=== PATIENT | female | born 1985 | race Caucasian/White ===

== ENCOUNTER → 2018-03-01 | Outpatient (CLI) | payer OTHER | LOC: HYPER 05:31 | DX: L89.324 Pressure ulcer of left buttock, stage 4 (principal); L89.893 Pressure ulcer of other site, stage 3; L89.121 Pressure ulcer of left upper back, stage 1; S71.132A Puncture wound without foreign body, left thigh, initial encounter; G82.20 Paraplegia, unspecified; G47.30 Sleep apnea, unspecified; I10 Essential (primary) hypertension; J45.909 Unspecified asthma, uncomplicated; K21.9 Gastro-esophageal reflux disease without esophagitis; F06.4 Anxiety disorder due to known physiological condition; F32.9 Major depressive disorder, single episode, unspecified; X58.XXXA Exposure to other specified factors, initial encounter; Y93.89 Activity, other specified; Y92.89 Other specified places as the place of occurrence of the external cause; Y99.8 Other external cause status ==

== ENCOUNTER 2018-03-19 16:33 | Inpatient (IN) | payer OTHER ==
[~2018-03-19] VITALS: Ht 175.3 cm; Wt 62.3 kg
[2018-03-19] MEDS ORDERED: LITHOSTAT250 MG PO (17:25)
[2018-03-19] MEDS ORDERED: AZOR 10-20 MG1 EACH PO (17:26)
[2018-03-19] MEDS ORDERED: ZYRTEC10 M2 PO (17:26)
[2018-03-19] MEDS ORDERED: VASOTEC5 MG PO (17:27)
[2018-03-19] MEDS ORDERED: AMLODIPINE BESY10 MG PO (17:28)
[2018-03-19] MEDS ORDERED: IRON325 PO (17:29)
[2018-03-19] MEDS ORDERED: MELATONIN5 M1 PO (17:30)
[2018-03-19] MEDS ORDERED: SENNA8.6 MG PO (17:30)
[2018-03-19 17:31] VITALS: BP 93/56
[2018-03-19] MEDS ORDERED: PRENATAL PO (17:31)
[2018-03-19] MEDS ORDERED: ZOLOFT50 MG PO (17:32)
[2018-03-19] MEDS ORDERED: LIORESAL 10 MG10 MG PO (17:33)
[2018-03-19] MEDS ORDERED: KLOR-CON 1010 MEQ PO (17:33)
[2018-03-19] MEDS ORDERED: VESICARE10 M1 PO (17:34)
[2018-03-19] MEDS ORDERED: OXYBUTYNIN 5 MG5 M2 PO (17:35)
[2018-03-19] MEDS ORDERED: SSD CREAM 1% 5050 GM TOP (17:36)
[2018-03-19] MEDS ORDERED: DESITIN57 GM TOP (17:38)
[2018-03-19] MEDS ORDERED: DAKIN'S473 M1 IRRIG (17:39)
[2018-03-19 18:00] LABS: BE(vivo) 2.6 mmol/L (-2 to +3); HCO3 26.8 mmol/L (22.0-26.0); PCO2 39.3 mmHg (35.0-45.0); PO2 137.3 mmHg (80.0-100.0); pH 7.452 (7.360-7.450); sO2 98.9 % (92.0-98.0)
[2018-03-19] MEDS ORDERED: BROVANA15 MCG/2 M INH (18:14)
[2018-03-19] MEDS ORDERED: PULMICORT0.5 MG/22 INH (18:15)
[2018-03-19] MEDS ORDERED: ALBUTEROL2.5 MG/31 INH (18:16)
[2018-03-19 18:35] LABS: ABSOLUTE NEUTROPHILS 6.4 thou/uL (1.4-8.2); BASOPHILS 0.4 % (0.0-2.0); EOSINOPHILS 0.9 % (0.0-3.0); LYMPHOCYTES 16.8 % (24.0-44.0); MCH 29.7 pg (26.0-34.0); MCHC 33.1 g/dL (28.0-37.0); MCV 89.8 fL (80.0-100.0); MONOCYTES 7.3 % (1.0-8.0); PLATELET COUNT 587 thou/uL (150-400); POLYS 74.6 % (36.0-66.0); RDW 16.4 % (10.5-14.5); WBC 8.6 thou/uL (4.0-11.0)
[2018-03-19 18:38] LABS: HEMOGLOBIN 5.9 gm/dL (12.0-15.0)
[2018-03-19 18:47] LABS: PROTIME 10.7 Seconds (9.3-11.4)
[2018-03-19 18:56] LABS: ALBUMIN 2.5 g/dL (3.4-5.0); CALCIUM 9.1 mg/dL (8.5-10.1); CREATININE 1.1 mg/dL (0.6-1.0); MAGNESIUM 2.4 mg/dL (1.8-2.4); POTASSIUM 5.7 mmol/L (3.5-5.1); TOTAL BILIRUBIN 0.2 mg/dL (<0.1-1.0); TOTAL PROTEIN 7.7 g/dL (6.4-8.2)
--- NOTE | 2018-03-19 19:43 | NUR ---
PT IS A DIRECT ADMIT FROM WOUND CLINIC- DR ZHAO..PATIENT STATES HER WOUNDS TO LT POSTERIOR THIGH, LEFT ISCIAL TUBEROSITY AND LEFT PERINEUM LABIAL HAVE BECOME WORSE..
--- NOTE | 2018-03-19 19:47 | NUR ---
PT REPORTS SHE HAD AN ADVANCED DIRECTIVE IN PAST BUT HAS NO IDEA WHERE IT IS BUT IS INTERESTED IN MAKING ANOTHER ADVANCED DIRECTIVE..HER MOTHER IS HER DPOA.PAPERS ON CHART..
[2018-03-19 20:40] VITALS: BP 97/60
[2018-03-19 22:37] LABS: URINE CLARITY CLEAR; URINE COLOR YELLOW
[2018-03-19 22:38] LABS: URINE BILIRUBIN NEGATIVE (Negative); URINE BLOOD NEGATIVE (Negative); URINE GLUCOSE-RANDOM* NEGATIVE (Negative); URINE KETONES NEGATIVE (Negative); URINE LEUKOCYTES-REFLEX NEGATIVE (Negative); URINE NITRITE-REFLEX NEGATIVE (Negative); URINE PROTEIN (DIPSTICK) NEGATIVE (Negative); URINE UROBILINOGEN 0.2 E.U./dl (0.2-1.0)
[2018-03-19 22:47] LABS: SSA (PROTEIN CONFIRMATORY) TRACE (APPROX. 5) mg/dL (Negative)
[2018-03-19 22:58] VITALS: BP 89/49; BP 98/60
[2018-03-20] VITALS (8 sets, daily range): BP systolic 77–105; BP diastolic 38–63
--- NOTE | 2018-03-20 03:32 | NUR ---
ASSUMED PT CARE AROUND 1900. A&OX4. PT'S MOTHER AT BEDSIDE ALL SHIFT. MOTHER HELPS WITH CARE OF PATIENT. 1 UNIT RBC INFUSED ORDERED. PT TOLERATED WELL. AWAITING REPEAT H&H RESULTS. PT C/O BACK PAIN AND PAIN IN HER WOUND. PRN PAIN MEDICATION GIVEN. PT SLEEPING AT THIS TIME, WHILE WEARING HOME TRILOGY UNIT. RESP EVEN AND UNLABORED. REPOSITIONED PT PER HER AND FAMILY REQUESTS. PICTURE TAKEN AND NEW DRESSING APPLIED TO WOUND. FALL PRECAUTIONS IN PLACE. PROGRESSING SLOWLY TOWARD POC GOALS. WILL CONTINUE TO MONITOR FURTHER.
[2018-03-20 03:43] LABS: ABSOLUTE NEUTROPHILS 6.5 thou/uL (1.4-8.2); BASOPHILS 0.6 % (0.0-2.0); EOSINOPHILS 1.3 % (0.0-3.0); HEMATOCRIT 22.3 % (37.0-47.0); HEMOGLOBIN 7.6 gm/dL (12.0-15.0); LYMPHOCYTES 19.1 % (24.0-44.0); MCH 31.3 pg (26.0-34.0); MCHC 34.1 g/dL (28.0-37.0); MCV 91.6 fL (80.0-100.0); MONOCYTES 5.6 % (1.0-8.0); PLATELET COUNT 586 thou/uL (150-400); POLYS 73.4 % (36.0-66.0); RBC 2.44 mil/uL (4.20-5.00); RDW 16.2 % (10.5-14.5); WBC 8.9 thou/uL (4.0-11.0)
[2018-03-20 04:02] LABS: ALBUMIN 2.4 g/dL (3.4-5.0); CALCIUM 8.7 mg/dL (8.5-10.1); CREATININE 1.4 mg/dL (0.6-1.0); MAGNESIUM 2.5 mg/dL (1.8-2.4); TOTAL BILIRUBIN 0.7 mg/dL (<0.1-1.0); TOTAL PROTEIN 7.5 g/dL (6.4-8.2)
[2018-03-20 04:09] LABS: POTASSIUM 6.1 mmol/L (3.5-5.1)
--- NOTE | 2018-03-20 11:15 | NUR ---
Dr. Kwok states patient may be able to have MRI test, as patient states that neurosurgery has been able to reprogram DOUGH CATCHER shunt for MRI testing in the past. To first consult neurology to determine if they are able to perform re-programming for DOUGH CATCHER shunt. Dr. Bolaños with call stating this is strictly neurosurgery. Neurology consult cancelled. There are no neurosurgeons covering this hospital at this time. Dr. Kwok states if we cannot reprogram for DOUGH CATCHER shunt, then to order CT abdomen / pelvis with contrast to evaluate.
--- NOTE | 2018-03-20 11:18 | NUR ---
Patient with low BP this morning, somewhat drowsy, diaphoretic and states is dizzy. Dr. Rishabh Naik wants fluid bolus and then continuous fluids. Patient only has peripheral access, that was very difficult stick. Will probably blow if running IV bolus through. Okay for PICC line placement. Awaiting to run bolus and fluids until PICC line. Patient BP has improved and feels somewhat better. PICC line placed by IV team but CXR shows misplacement. Patient to travel down to IR for new PICC line placement and also for CT abdomen / pelvis. Will run fluids after new PICC line placement and verification received.
--- NOTE | 2018-03-20 11:33 | NUR ---
VASCULAR ACCESS CONSULTED FOR A PICC FOR THIS PT. SHE HAS HARDWARE FOR SCOLIOSIS AND HAS HAD MULTIPLE LINES IN HER HX. THE CONSENT WAS OBTAINED AND A TIME OUT COMPLETED WITH [facility]. PER HOSPITAL P&P, HER RUABASILIC WAS ACCESSED X1 ATTEMPT WITH US GUIDE. A 5FRDBLPICC WAS TRIMMED AT 42CM AND INSERTED TO 39CM WITH A BRISK BLOOD RETURN. THE CXR SHOWS THE TIP ACROSS THE SUBCLAVIAN AND IR WAS CONTACTED TO REPOSITION DUE TO HER HARDWARE MAKING THE TIP DIFFICULT TO VISUALIZE. PT MADE AWARE AND ORDERS PLACED.
--- NOTE | 2018-03-20 16:03 | NUR ---
ASSESSMENT: CM REVIEWED CHART AND MET WITH PATIENT AT THE BEDSIDE. PTS MOTHER IS ALSO AT THE BEDSIDE WITH HER. PT HAS HX OF SPINA BIFIDA AND IS WHEELCHAIR BOUND AND WAS ADMITTED DUE TO INFECTED ULCERS. PT LIVES IN A HOUSE WITH HER MOTHER. PT HAS A RAMP TO ENTER THE HOME AND MOTHER REPORTS THE WHOLE HOUSE IS HANDICAP EQUIP. PT HAS TWO WHEELCHAIRS AT HOME. PT ALSO IS CURRENTLY IN SERVICES WITH [facility] ([facility]) AND A NURSE COMES TO THE HOME 3X/WEEK AND HAD BEEN HELPING WITH WOUND CARE. [facility] REQUEST WE FAX D/C INFORMATION TO THEIR FAX [phone]. CM FAXED INITIAL REFERRAL. PATIENT REPORTS SHE HAD BEEN [facility] IN THE PAST. PT ALSO REPORTS SHE HAS OXYGEN SUPPLIED AT HOME THROUGH [facility] AND IS NORMALLY ON 2-3L AND REPORTS SHE ALSO HAS A TRILOGY THROUGH [facility] PATIENT. CM DISCUSSED ROLE. CM WILL CONITNUE TO FOLLOW TO ASSIST NEEDED.
--- NOTE | 2018-03-20 16:16 | NUR ---
WOUND CONSULT: PT. WAS SEEN TODAY BY DR. FAITH AND MYSELF. PT. WAS ADMITTED YESTERDAY FROM THE WOUND CLINIC. PT. HAS A STAGE 4 PRESSURE ULCER TO HER LEFT ISCHIAL TUBEROSITY. PT. WILL BE HAVING SURGICAL DEBRIDEMENT TO AID IN HEALING OF THIS WOUND. RECOMMENDATIONS: WOUND CARE TO LEFT ISCHIAL TUBEROISTY: GENTLY CLEANSE AREA WITH WOUND CLEANSER OR NORMAL SALINE, PACK WITH DAKIN SOAKED KERLIX, COVER WITH ABD, SECURE WITH KERLIX AND TAPE, COMPLETE CARES DAILY AND PRN. TURN Q2 HOURS KEEP PT. OFF WOUNDS MUCH POSSIBLE KEEP ON JAMARCUS MATRESS. PT. AND STAFF NURSE WERE INSTRUCTED ON PLAN OF CARE.
--- NOTE | 2018-03-20 20:44 | NUR ---
Assumed care of patient at 0700. Blood pressure hypotensive this morning. Dr. Naik aware and ordered fluid bolus and PICC line placement. See previous note regarding bolus, IVF and PICC line placement. PICC line was obtained by IR to right upper arm. CT abdomen / pelvis done this afternoon, as well. Results as documented. Patient with continued soft BPs throughout shift, but did receive 1.5 L bolus of NS and now has continuous IVF running. Patient denies any further diaphoresis or dizziness, other than this morning. Otherwise, VSS. Remains on 3L NC. Patient on and off drowsy throughout shift, but arouses easily. Oriented x4. Tearful at times. Complaints of headache, treated with PRN. Patient drank Kayexalate this evening. Able to transfer self from bed to [facility]. Mother used MACE stoma to irrigate bowel, and with Kayexalate, patient able to produce a small formed BM with moderate liquid stool, as well. Mother is straight cathing through Mitrofanoff stoma for urine - good output throughout day. Wound care rounded on patient and orders placed. Dressing changed after using BSC this evening but Dakins not available at this time. Dressing changed and wound packed with saline-soaked Kerlix. Covered with ABD. Profo boots ordered and placed. Remains with bilateral SCDs and low airloss mattress pump. Repositioning every couple hours to maintain skin integrity. Mother has remained at bedside all day today and is very attentive in patient's care. Awaiting clearance from physicians to move forward with surgery. Slowly progressing towards POC. Will continue to monitor.
[2018-03-21] VITALS (7 sets, daily range): BP systolic 87–105; BP diastolic 51–65
--- NOTE | 2018-03-21 06:04 | NUR ---
ASSUMED PT CARE AROUND 1900. A&OX4. C/O BACK PAIN AND PAIN IN WOUND. PAIN MEDICATION GIVEN INDICATED WITH SOME RELIEF. REPOSITIONED FREQUENTLY TO PREVENT SKIN BREAKDOWN. NEW DRESSING APPLIED TO WOUND. SBP 80S-90S. NOTIFIED SAT MATH TUTOR SUPERVISOR WHIPPED TOPPING. IVF INFUSING ORDERED. PT ASYMPTOMATIC WITH BP. SAT MATH TUTOR AWARE OF URINE OUTPUT. PT SLEPT MOST OF THE NIGHT WITH TRILOGY UNIT ON. RESP EVEN AND UNLABORED. PROGRESSING SLOWLY TOWARD POC GOALS. WILL CONTINUE TO MONITOR FURTHER.
[2018-03-21 07:57] LABS: ABSOLUTE NEUTROPHILS 5.1 thou/uL (1.4-8.2); BASOPHILS 0.6 % (0.0-2.0); EOSINOPHILS 2.3 % (0.0-3.0); HEMATOCRIT 21.3 % (37.0-47.0); HEMOGLOBIN 7.1 gm/dL (12.0-15.0); LYMPHOCYTES 22.5 % (24.0-44.0); MCH 30.3 pg (26.0-34.0); MCV 91.7 fL (80.0-100.0); MONOCYTES 6.2 % (1.0-8.0); POLYS 68.4 % (36.0-66.0); RBC 2.33 mil/uL (4.20-5.00); RDW 16.4 % (10.5-14.5); WBC 7.5 thou/uL (4.0-11.0)
[2018-03-21 08:00] LABS: PLATELET COUNT 481 thou/uL (150-400)
[2018-03-21 08:06] LABS: CALCIUM 7.5 mg/dL (8.5-10.1); CREATININE 1.2 mg/dL (0.6-1.0); MAGNESIUM 2.1 mg/dL (1.8-2.4); POTASSIUM 4.4 mmol/L (3.5-5.1)
--- NOTE | 2018-03-21 10:46 | HC ---
[facility] [place] [address] CONSULTATION Name: RENZO BUCIO Room #: 364-P ADM IN M.R.#: [id number] Admission: 03/19/18 Attend Phys: Kashif Kwok MD Discharge: Date of : 89 Report #: [id number] THIS REPORT FOR: //name// CC: Kashif Escobedo DATE OF SERVICE: 03/20/2018 CHIEF COMPLAINT: Stage 4 ischial pressure ulceration. HISTORY OF PRESENT ILLNESS: This is a 32-year-old female patient with paraplegia secondary to spina bifida who has had a persistent pressure ulceration of the left ischial region. I saw her in clinic yesterday and she had obvious signs of infection and has been failing at home. She has had very poor intake over the last 4+ weeks and no evidence of any sort of wound healing. She had been followed at [facility] previously and is brought here for a second opinion and further evaluation. PAST MEDICAL HISTORY: The patient's past medical history is positive for history of spina bifida, Jacobo rods for severe scoliosis, restrictive lung disease, lower extremity paraplegia, hydrocephalus with recent PURSE SEINER shunt replacement, urinary retention and chronic constipation. The patient's family members are quite concerned about her, states that she has had fevers at home recently and they are looking for more aggressive intervention for her wound issues. MEDICATIONS: The patient's medications include albuterol, amlodipine, baclofen, budesonide, enalapril, enoxaparin, ferrous sulfate, hydrocodone, loratadine, melatonin, ondansetron, oxybutynin, Zosyn, Klor-Con, senna and sertraline. ALLERGIES: MORPHINE, CLINDAMYCIN, MEPERIDINE AND LATEX. SOCIAL HISTORY: The patient lives at home with her mother and sister. No history of alcohol or tobacco use. FAMILY HISTORY: Noncontributory. REVIEW OF SYSTEMS: CONSTITUTIONAL: The patient has had fever and chills. She suspects she has had some recent weight loss with her poor oral intake. ENT: The patient denies earache, nasal drainage or sore throat. EYES: The patient denies visual changes, redness or drainage. CARDIOVASCULAR: The patient denies chest pain, palpitations or diaphoresis. PULMONARY: The patient denies cough or shortness of breath. GASTROINTESTINAL SYSTEM: The patient denies nausea, vomiting, diarrhea or abdominal pain. [address] [address] CONSULTATION Name: RENZO BUCIO Room #: 364-P [facility] IN .R.#: [id number] Admission: 03/19/18 Attend Phys: Kashif Kwok MD Discharge: Date of : 89 Report #: [id number] ORTHOPEDIC: The patient is aware of the pressure ulceration to the ischial region that has been gradually worsening with increasing drainage. NEUROLOGIC: The patient has paraplegia to both lower extremities. Other systems in a 14-point review of systems are negative. PHYSICAL EXAMINATION: VITAL SIGNS: At this time include pulse 83, respiratory rate 20, blood pressure 77/38 and temperature 97.7. GENERAL: This is a chronically ill-appearing female patient who appears to be in no obvious distress. HEENT: Head normocephalic. Nose and throat are clear. NECK: Supple. LUNGS: Diminished. HEART: Regular rhythm. ABDOMEN: Soft without tenderness at this time. PELVIC: Pelvic region demonstrates a very large stage 4 pressure ulceration that appears to be in the left ischial region. There is bone palpable in the base and moderate slough and fibrin noted as well, some odor and yellow-green drainage is noted. This ulceration extends anteriorly into the vulvar region on the left side as well. EXTREMITIES: Lower extremities are underdeveloped with no evidence of obvious breakdown. NEUROLOGIC: The patient is paraplegic, otherwise awake, alert and oriented. LABORATORY DATA: Includes sodium 138, potassium 5.7, chloride 104, CO2 of 28, BUN 40, creatinine 1.1 and glucose 101. Total protein is 7.7 and albumin is 2.5. CRP is markedly elevated at 208.9. White blood cell count 8.6 with hemoglobin 7.6 and initially 5.9. Prealbumin was markedly low at 15.6. Sed rate is greater than 150. CT scan shows chronic evident changes of chronic osteomyelitis of the pelvis. CLINICAL IMPRESSION: 1. Stage 4 left ischial pressure ulceration with extension anteriorly into the vulvar region. 2. Paraplegia secondary to spina bifida. 3. Moderate to severe protein-calorie malnutrition with poor oral intake. 4. Restrictive lung disease. RECOMMENDATIONS: At this point in time, the patient will be admitted to the hospital. We will ask General Surgery to see her for surgical debridement of the ulceration as well as consideration of PEG tube placement as well as possible diverting colostomy. The patient's mother has multiple questions about this and we will discuss these options further with General Surgery. We will place on a low air loss mattress, q. 2 hour turning and positioning. We will try Prevalon boots to protect her heels while here. Continue current medications and current broad spectrum antibiotics pending cultures. [address] [address] CONSULTATION Name: RENZO BUCIO Room #: 364-P ADM IN M.R.#: [id number] Admission: 03/19/18 Attend Phys: Kashif Kwok MD Discharge: Date of : 89 Report #: [id number] I appreciate being asked to see her in consultation. <ELECTRONICALLY SIGNED> By: Adonis Bird MD 03/21/18 1046 [id number] Adonis Bird MD /nt
--- NOTE | 2018-03-21 11:11 | HC ---
[facility] [place] [address] CONSULTATION Name: RENZO BUCIO Room #: 364-P ADM IN M.R.#: [id number] Admission: 03/19/18 Attend Phys: Kashif Kwok MD Discharge: Date of : 89 Report #: [id number] THIS REPORT FOR: //name// CC: Kashif Escobedo DATE OF SERVICE: 03/20/2018 REASON FOR CONSULTATION: I was asked to evaluate concerning left ischial hip wound infection. HISTORY OF PRESENT ILLNESS: The patient is a 32-year-old with spina bifida, paraplegia, a 6-month history of nonhealing left ischial wound. She tried multiple treatments with localized debridement. Antibiotic therapy. No improvement and hospitalized now for more definitive therapy. She has had temperature up to 102 degrees in the past 24 hours. Mild chills. Poor oral intake. No increased pain. In addition, the patient has been cared for at [facility] for DENTAL LAB TECHNICIAN shunt revision. This was complicated by Pseudomonas aeruginosa meningitis. She completed a course of therapy 2 months ago and has now had revision shunt placed. There have been no neurologic issues noted over the last month. The patient has a neurogenic bladder. She catheterizes via a stoma placed at her umbilicus. She reports multiple urinary tract infections. She has had no diarrhea. She actually has a fistulous tract place into the colon for hydration to assist with stool evacuation. REVIEW OF SYSTEMS: A 10-point review of systems is otherwise negative. PAST MEDICAL HISTORY: Spina bifida, Jacobo rods reconstruction of her back, restrictive lung disease, paraplegia, chronic urinary tract infections, hydrocephalus, DENTAL LAB TECHNICIAN shunt revision, pseudomonas meningitis, insomnia, depression, neurogenic bladder, chronic constipation. ALLERGIES: CLINDAMYCIN, LATEX, DEMEROL, MORPHINE. MEDICATIONS: As noted on her APR. Zosyn was started last evening. REVIEW OF SYSTEMS: CONSTITUTIONAL: As noted above. HEENT: No visual complaints and no auditory complaints. RESPIRATORY: Negative. CARDIOVASCULAR: Negative. GASTROINTESTINAL: As above. GENITOURINARY: As above. NEUROLOGIC: As above. [facility] [address] [address] CONSULTATION Name: RENZO BUCIO Room #: 364-P [facility] IN M.R.#: [id number] Admission: 03/19/18 Attend Phys: Kashif Kwok MD Discharge: Date of : 89 Report #: [id number] MUSCULOSKELETAL: As above. SKIN: As above. PSYCHIATRIC: As above. ENDOCRINE: Negative. HEMATOLOGIC AND LYMPHATIC: Negative. PHYSICAL EXAMINATION: GENERAL APPEARANCE: In no distress. She was hypotensive with heart rate of 100. Blood pressure was in the 70 systolic. She was lethargic from given sedation earlier this morning, but did arouse and was conversant and appropriate. SKIN: No rashes with a stage 4 left ischial decubitus, which tunneled a fair amount with exposed bone. EYES: Nonicteric. MOUTH: Without mucositis. NECK: Supple. LUNGS: Clear. HEART: Regular, without murmur. ABDOMEN: Soft, nontender. No hepatosplenomegaly or mass. BACK: No CVA tenderness. EXTREMITIES: Upper extremities were unremarkable. No cyanosis or edema. Lower extremities 1+ edema, paralysis. NEUROLOGIC: Cranial nerves intact. DENTAL LAB TECHNICIAN shunt was nontender. Paralysis both lower extremities. No palpable adenopathy. Mood normal. LABORATORY STUDIES: Sodium 140, potassium 6.1, bicarbonate 28, creatinine 1.4. Liver function test normal. Hemoglobin 7.6, WBC 8.9, unremarkable differential, platelet count 586,000. Urinalysis negative. Sedimentation rate greater than 50. Chest x-ray clear. IMPRESSION: 1. A 32-year-old with spina bifida and left ischial wound infection and suspecting osteomyelitis. Has fever, likely related to her pelvic wound. 2. Acute kidney injury. 3. Malnutrition. 4. Nausea with weight loss. 5. DENTAL LAB TECHNICIAN shunt revision. RECOMMENDATION: We will continue IV antibiotic therapy. IV fluid bolus currently and reassess. CT scan of the pelvis. Place PICC line. Surgical debridement with deep tissue cultures. Anticipate prolonged course of IV [address] [address] CONSULTATION Name: RENZO BUCIO Room #: 364-P [facility] IN .R.#: [id number] Admission: 03/19/18 Attend Phys: Kashif Kwok MD Discharge: Date of : 89 Report #: [id number] antibiotic therapy. General Surgery has evaluated and is considering diverting colostomy as well. <ELECTRONICALLY SIGNED> By: Scott Naik MD 03/21/18 1111 [id number] Scott Naik MD /nt
--- NOTE | 2018-03-21 14:02 | NUR ---
ASSUMED PATIENT CARE AT 0715. A&OX4. COMPLAINTS OF HEAD, NECK, BACK, AND WOUND PAIN. PATIENT IS CATH'D THROUGH THEIR UMBILICUS (MITROFENOFF) TO VOID. Q2 TURN. 3L NC DURING THE DAY AND WEARS THEIR TRILOLGY HS. PLANNING ON SURGERY AT SOME POINT. DR. TERAN STATED THEY WOULD COME SPEAK WITH THE PATIENT AND MOTHER WHEN HE HAD A TIME FOR SURGERY. SEE SURGEONS NOTE. MOTHER AT BEDSIDE AND HELPS WITH CARES. VERY PLEASANT FAMILY. ABLE TO MAKE NEEDS KNOWN. SLOWLY WOKRING TOWARDS GOALS.
[2018-03-22 03:28] VITALS: BP 125/81
--- NOTE | 2018-03-22 04:56 | NUR ---
ASSUMED PT CARE AROUND 1900. A&OX4. PT'S MOTHER AT BEDSIDE ALL SHIFT, AND SHE ASSISTS WITH PT CARE AT TIMES. PT SLEPT MOST OF THE NIGHT. RESP EVEN AND UNLABORED. C/O CHRONIC PAIN. TYLENOL GIVEN. REPOSITIONED FREQUENTLY TO PREVENT FURTHER SKIN BREAKDOWN. VSS. AFEBRILE. PROGRESSING SLOWLY TOWARD POC GOALS. WILL CONTINUE TO MONITOR FURTHER.
[2018-03-22 05:08] LABS: HEMATOCRIT 20.1 % (37.0-47.0); MCH 29.3 pg (26.0-34.0); MCHC 31.5 g/dL (28.0-37.0); RDW 16.5 % (10.5-14.5); WBC 5.2 thou/uL (4.0-11.0)
[2018-03-22 05:11] LABS: RBC 2.16 mil/uL (4.20-5.00)
[2018-03-22 05:16] LABS: HEMOGLOBIN 6.3 gm/dL (12.0-15.0)
[2018-03-22 05:19] LABS: CALCIUM 7.7 mg/dL (8.5-10.1); CREATININE 0.8 mg/dL (0.6-1.0); MAGNESIUM 2.1 mg/dL (1.8-2.4); POTASSIUM 4.3 mmol/L (3.5-5.1)
[2018-03-22 06:26] VITALS: BP 107/71; BP 94/55
--- NOTE | 2018-03-22 06:45 | NUR ---
HGB CRITITICALLY LOW THIS MORNING. NOTIFIED SURGICAL ASSIST GENERAL OFFICE DISPATCHER. ORDER RECEIVED. STARTED 1 UNIT RBC PER ORDER. WILL UPDATE ONCOMING NURSE.
[2018-03-22 07:38] VITALS: BP 94/65
[2018-03-22 11:26] VITALS: BP 116/70
[2018-03-22 12:45] LABS: HEMOGLOBIN 7.8 gm/dL (12.0-15.0)
[2018-03-22 15:28] VITALS: BP 117/72
--- NOTE | 2018-03-22 15:34 | NUR ---
WOUND FOLLOW UP: PT. WAS SEEN TODAY BY DR. FAITH AND MYSELF. PT. WOUND IS STABLE AT THIS TIME. AWAITING SUGICAL INTERVENTION. RECOMMENDATIONS: CONTINUE WITH CURRENT PLAN OF CARE. PT. AND STAFF NURSE WERE INSTRUCTED ON PLAN OF CARE.
[2018-03-22 19:37] VITALS: BP 115/74
[2018-03-23] VITALS (11 sets, daily range): BP systolic 98–133; BP diastolic 56–84
[2018-03-23 04:53] LABS: HEMATOCRIT 23.7 % (37.0-47.0); HEMOGLOBIN 7.5 gm/dL (12.0-15.0); MCH 29.2 pg (26.0-34.0); MCHC 31.8 g/dL (28.0-37.0); MCV 91.7 fL (80.0-100.0); RBC 2.58 mil/uL (4.20-5.00); RDW 18.1 % (10.5-14.5); WBC 4.9 thou/uL (4.0-11.0)
[2018-03-23 05:10] LABS: CALCIUM 8.3 mg/dL (8.5-10.1); CREATININE 0.6 mg/dL (0.6-1.0); MAGNESIUM 2.2 mg/dL (1.8-2.4); POTASSIUM 4.2 mmol/L (3.5-5.1)
--- NOTE | 2018-03-23 06:32 | NUR ---
Received pt. on 2L/NC then on trilogy at HS while asleep. Pain med given for headache and back pain with good relief.She stated she slept well during the night. She has been repositioned for comfort. Mom at bedside. Afebrile. Chlorhexidine bath given this am. Kept NPO for possible surgery today. Will continue to monitor.
--- NOTE | 2018-03-23 08:20 | NUR ---
Patient left for Pre-Op, accompanied by mother, at 0820.
--- NOTE | 2018-03-23 11:11 | NUR ---
Nutrition: When able to use PEG suggest tube feeds to meet approx. 50% of needs to start. WIll followup on further intake trends. REC Pivot 1.5 formula for wound healing to reach goal rate of 65 mL/hr to run 10 hrs nocturnal from [id number].
--- NOTE | 2018-03-23 16:04 | NUR ---
ON-GOING ASSESSMENT: PATIENT HAD DEBRIDEMENT TODAY. PT WAS TO HAVE PEG TUBE PLACED TODAY BUT SURGEON UNABLE TO PLACE PEG AT THIS TIME. CM WILL CONTINUE TO FOLLOW TO ASSIST WITH NEEDS.
--- NOTE | 2018-03-23 16:20 | NUR ---
Assumed care of patient at 0700. Patient left for surgery this morning around 0800 and returned to floor around 1400. Patient is alert and oriented x4, drowsy post-op, but easily arousable. Complaints of headache and neck pain. PRN provided with good relief. Patient remains on Trilogy post-op, continuous pulse ox in place and oxygen saturations >94%. Dressing to left ischial tuberosity after I&D with moderate pink drainage, but intact. Surgeon unable to place Peg tube and colostomy. Mother requesting to speak with Dr. Bird, who is at bedside this afternoon. Mother asked physician questions, who states will speak with surgeon, as far as what the next step will be, since those interventions were unsuccessful. Voiding adequately. IVF and IV antibiotics as ordered to right upper PICC. Repositioning every couple hours to maintain skin integrity, low airloss mattress pump in place. Profo boots and bilateral SCDs. Mother remains at bedside. Slowly progressing towards POC. Will continue to monitor.
[2018-03-24 04:05] VITALS: BP 113/70
[2018-03-24 07:17] VITALS: BP 120/70
[2018-03-24 07:56] LABS: HEMATOCRIT 23.1 % (37.0-47.0); HEMOGLOBIN 7.6 gm/dL (12.0-15.0); MCH 30.4 pg (26.0-34.0); MCHC 32.7 g/dL (28.0-37.0); RBC 2.49 mil/uL (4.20-5.00); RDW 18.2 % (10.5-14.5); WBC 7.8 thou/uL (4.0-11.0)
--- NOTE | 2018-03-24 08:00 | NUR ---
SLEPT MOST OF SHIFT. PAIN MEDICATION GIVEN WITH NOTED RELIEF PRN. WORKING ON GOALS AND PLAN OF CARE FOR NOC. MAINTIAN SAFE ENVIRONMENT. PROGRESSING TOWARDS DISCHARGE GOALS SLOWLY. REPOSITIONED FOR COMFORT. MOM AT BEDSIDE. TOLERATED TRILOGY WITHOUT COMPLAINTS.
[2018-03-24 08:03] LABS: CALCIUM 8.5 mg/dL (8.5-10.1); CREATININE 0.6 mg/dL (0.6-1.0); MAGNESIUM 1.9 mg/dL (1.8-2.4); POTASSIUM 3.9 mmol/L (3.5-5.1)
[2018-03-24 11:57] VITALS: BP 109/69
[2018-03-24 16:00] VITALS: BP 144/86
--- NOTE | 2018-03-24 17:50 | NUR ---
Assumed care of patient at 0700. Vitals have been stable. Maintaining oxygen saturations on 3-4L NC, per home regimen and wears Trilogy at night. Alert and oriented x4. Patient has multiple pain complaints today - mainly headache / migraine pain that Fentanyl and Muldrow partially relieve, but pain comes back quickly. Spoke with Dr. Kowk. Orders for Imitrex and Toradol PRN. Patient states helped with headache pain, but now with back pain. Rotating Fentanyl and Muldrow use - encouraging to use Fentanyl more for break through pain. Voices understanding. Encouraging patient to get up to commode today for bowel regimen - also want to have BM before changing surgical dressing 24 hours post I&D. Patient first requested to wait until after lunch, then patient with many visitors throughout afternoon and patient also in pain. Patient agreeable for bowel regimen this evening - got on commode recently and using Mace stoma to irrigate bowels. Linens changed and wound care ready at bedside to change surgical dressing and take picture for chart post I&D. Voiding adequately with straight cath and Mitrofanoff stoma. Repositioning every couple hours to maintain skin intregity. Bilateral SCDs and Prafo boots. Low airloss pump in place. Attempting to progress towards POC. Will continue to monitor.
[2018-03-24 19:58] VITALS: BP 136/77
[2018-03-25] VITALS (8 sets, daily range): BP systolic 104–133; BP diastolic 62–88
--- NOTE | 2018-03-25 04:52 | NUR ---
SLEPT MOST OF SHIFT. REPOSITIONED EVERY 2 HOURS FOR COMFORT AND SKIN CARE. PAIN MEDICATION GIVEN WITH NOTED RELIEF. WORKING ON GOALS AND PLAN OF CARE FOR NOC. MAINTAIN SAFE ENVIRONMENT. TELEMTRY SHOWS SA AND BRIAN AT TIMES IN THE 40'S WHILE SLEEPING. MOTHER STRAIGHT CATHS PRN. PROGRESSING SLOWLY TOWARDS DISCHARGE GOALS. CONTINUE TO ASSES.
[2018-03-25 05:42] LABS: HEMATOCRIT 21.9 % (37.0-47.0); MCH 30.1 pg (26.0-34.0); MCHC 32.1 g/dL (28.0-37.0); MCV 93.8 fL (80.0-100.0); RBC 2.33 mil/uL (4.20-5.00); RDW 17.8 % (10.5-14.5); WBC 5.9 thou/uL (4.0-11.0)
[2018-03-25 05:48] LABS: CALCIUM 8.4 mg/dL (8.5-10.1); CREATININE 0.5 mg/dL (0.6-1.0); MAGNESIUM 1.9 mg/dL (1.8-2.4); POTASSIUM 3.7 mmol/L (3.5-5.1)
--- NOTE | 2018-03-25 20:10 | NUR ---
Assumed care of patient at 0700. Vitals have been stable. Complaints of pain throughout day - headache pain, but mainly back pain. Alternating PRN with partial pain relief. Patient and family report that Dr. Kwok spoke about possibly increasing Baclofen dose and trying heating pad for additional pain relief. Heating pad provided to patient. Paged Dr. Kwok to ask about additional Baclofen and no callback. Repositioning patient every couple hours to maintain skin integrity and for additional pain relief. Continue to use Mitrofanoff stoma to straight cath for urine; good urine output. Hemoglobin 7.0 today, one unit blood ordered by Dr. Ferguson. One unit PRBCs infused without issues or reactions noted today. Dressing change per wound care orders. Family at bedside throughout day. Slowly progressing towards POC. Will continue to monitor.
[2018-03-26 05:30] VITALS: BP 109/68
[2018-03-26 05:37] LABS: HEMATOCRIT 27.1 % (37.0-47.0); HEMOGLOBIN 8.4 gm/dL (12.0-15.0); MCH 29.1 pg (26.0-34.0); MCHC 31.2 g/dL (28.0-37.0); MCV 93.6 fL (80.0-100.0); RBC 2.89 mil/uL (4.20-5.00); RDW 17.6 % (10.5-14.5); WBC 6.6 thou/uL (4.0-11.0)
[2018-03-26 05:58] LABS: ALBUMIN 2.2 g/dL (3.4-5.0); CALCIUM 8.4 mg/dL (8.5-10.1); CREATININE 0.6 mg/dL (0.6-1.0); MAGNESIUM 1.9 mg/dL (1.8-2.4); POTASSIUM 3.7 mmol/L (3.5-5.1); TOTAL BILIRUBIN 0.3 mg/dL (<0.1-1.0); TOTAL PROTEIN 6.5 g/dL (6.4-8.2)
--- NOTE | 2018-03-26 06:10 | NUR ---
SLEPT MOST OF SHIFT ON TRILOGY. PAIN MEDICATION GIVEN PRN WITH NOTED RELIEF. REQUEST TO NOT BE REPOSITIONED THIS AM. MOM AT BEDSIDE. WORKING ON GOALS AND PLAN OF CARE FOR DAY. PROGRESSING SLOWLY TOWARDS DISCHARGE GOALS. CONTINUE TO ASSES CLOESLY.
[2018-03-26 07:11] VITALS: BP 119/65
--- NOTE | 2018-03-26 10:37 | NUR ---
Assumed pt care at 0645. pt is a/o x4 with some major debility. pt is cared for by mother at home, whom is at the bedside. changed dressing this am with no issues. pt still complaining of pain, was given fentanyl and tordol. will continue to montior pt.
[2018-03-26 11:26] VITALS: BP 113/63
[2018-03-26 15:29] VITALS: BP 145/89
[2018-03-26 19:50] VITALS: BP 124/72
[2018-03-27 03:31] VITALS: BP 116/61
--- NOTE | 2018-03-27 03:58 | NUR ---
Patient making slow progress towards outcome goals. Oxygenation optimal 3L nc while awake and home trilogy with 6-7L bled in. Good pain control with Fentanyl and Hydocodone. Good urine output after Lasix. Mother very supportive always at bedside.
--- NOTE | 2018-03-27 07:45 | O ---
[facility] [place] [address] OPERATIVE REPORT Name: RENZO BUCIO Room #: 364-P ADM IN M.R.#: [id number] Admission: 03/19/18 Attend Phys: Kashif Kwok MD Discharge: Date of : 89 Report #: [id number] THIS REPORT FOR: //name// CC: Kashif Escobedo DATE OF SERVICE: 03/23/2018 SURGEON: Alberto York MD FUSE ASSEMBLER: Andres Granado DO PREOPERATIVE DIAGNOSES: 1. Unstageable left ischial tuberosity/perineal decubitus ulcer. 2. Protein calorie malnutrition. 3. Spina bifida with paraplegia. 4. Scoliosis. 5. History of appendicostomy, urostomy, and ventriculoperitoneal shunt placement/revisions times 2. PREOPERATIVE DIAGNOSES: 1. 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 2. Protein calorie malnutrition. 3. Spina bifida with paraplegia. 4. Scoliosis. 5. History of appendicostomy, urostomy, and ventriculoperitoneal shunt placement/revisions times 2. PROCEDURE: 1. Diagnostic laparoscopy with EGD. 2. Excisional and ultrasonic debridement including skin, subcutaneous tissue, muscle and bone of the left ischial tuberosity decubitus ulcer (starting measurement 10 cm2; ending measurement 45 cm2). 3. Application of Interfyl skin substitute. ANESTHESIA: General endotracheal anesthesia and local anesthetic. ESTIMATED BLOOD LOSS: 5 mL. SPECIMEN: Left ischial tissue including skin, subcutaneous tissue, and muscle, as well as left ischial tuberosity (bone). COMPLICATIONS: None appreciated; unable to place PEG and colostomy. INDICATIONS FOR PROCEDURE: This is a 32-year-old female patient with a history of paraplegia secondary to spina bifida, who has a nonhealing wound involving [address] [address] OPERATIVE REPORT Name: RENZO BUCIO Room #: 364-P ADM IN .R.#: [id number] Admission: 03/19/18 Attend Phys: Kashif Kwok MD Discharge: Date of : 89 Report #: [id number] her left ischial tuberosity/peritoneum. The patient also has malnutrition. The decubitus ulcers are felt to have worsened as a result of fecal contamination. The patient presents today for excisional debridement of her unstageable ulcer, as well as for PEG placement and diverting colostomy (with a possible need for laparoscopic assistance for one or both). OPERATIVE FINDINGS: The patient's initial wound measurements were 5 cm wide x 2 cm long with ending measurement of 9 cm wide x 5 cm long (45 cm2). In order to get down to healthy tissue, debridement was carried down to bone. The outer table of the ischial tuberosity had been removed. The underlying marrow was slightly inflamed, but did not appear to be infected. No pus was encountered. There was no significant malodorous drainage. Upon attempt to place the PEG tube, I was unable to transilluminate through the stomach and abdominal wall directly. Decision was made to place a laparoscope to attempt to find the stomach. EGD was otherwise normal. Upon entrance into the abdominal cavity, multiple adhesions were present, presumably from her previous multiple operations including her appendicostomy, urostomy, and a RADIUS CORNER MACHINE OPERATOR shunt placement with revisions. I was unable to definitively identify the colon or stomach after an extensive search. Due to the extensive intra-abdominal adhesions, both the laparoscopic assisted PEG and colostomy were aborted and the operation was essentially a diagnostic laparoscopy. There was very little working room on the inside as a result of the patient's body habitus and numerous operations. DESCRIPTION OF PROCEDURE IN DETAIL: After the risks, benefits, calculus, benefits, and expectations of the operation were discussed in detail with the patient and her family, informed consent was obtained. The patient was identified in the preoperative holding area. She has been receiving scheduled IV antibiotics. She was taken to the operating room and she was placed in the supine position. SCDs were placed on the patient's bilateral lower extremities and pneumatic compression was initiated. The patient was then given IV sedation and she was intubated without incident. She was placed in the prone position on the operating room table. The ischial tuberosity/perineum was prepped and draped in the standard sterile fashion. A time-out was performed to identify the correct patient and procedure. Local anesthetic was infiltrated into the skin and subcutaneous tissue around the wound. A sharp #10 blade scalpel was used to make the incision after taking initial measurements. Electrocautery was used to dissect through the subcutaneous tissue to excise the nonviable/necrotic tissue. The soft tissue was removed and sent for specimen. Bleeding points were made hemostatic. Dissection was carried down further to the ischial tuberosity itself. A rongeur was used to remove the outer table and portions of the marrow. Findings are as noted above. A rasp was used to smooth out the bone. [facility] [address] [place] [address] OPERATIVE REPORT Name: RENZO BUCIO Room #: 364-P ADM IN Juliette#: [id number] Admission: 03/19/18 Attend Phys: Kashif Kwok MD Discharge: Date of : 89 Report #: [id number] were taken from the marrow to include aerobes, anaerobes and fungus. Bleeding points were again made hemostatic with electrocautery. The wound was then irrigated. The [employer] ultrasonic debridement device was then used to mechanically debride the entire wound surface area including the bone marrow. Bleeding points were cauterized. After ensuring adequate hemostasis, 2 mL of Interfyl was applied evenly the wound bed after its preparation on the backtable. The skin substitute was spread throughout the wound with the back end of a forceps. Adaptic, normal saline, moistened Kerlix and ABD pad and tape were placed to dress the wound. The patient was then placed in the supine position. I then attempted to place the PEG tube. A bite block was placed by anesthesia under my direction. The gastroscope was inserted into the patient's oropharynx and passed down the esophagus and into the stomach. The stomach was then distended with carbon dioxide. All OR lights were turned off and transillumination noted on the gastroscope showed no ability to transilluminate. As a result of this, decision was made to place a laparoscope to assist with placement of the gastrostomy tube. An area was chosen for placement of the scope, which would coincide with the planned colostomy based on her CT scan. Local anesthetic was infiltrated into the skin and subcutaneous tissue. A sharp #15 blade scalpel was used to make a small transverse incision. The 5 mm Visiport was then placed intraperitoneally with a 0-degree angled laparoscope. Pneumoperitoneum was achieved with insufflation of carbon dioxide to 15 mmHg. This was not difficult, as there was little working space and the patient was now fully relaxed initially. There was very little working room. An additional 5 mm port was placed Under direct visualization after local anesthetic was infiltrated into the skin and subcutaneous tissue in an area where there were no adhesions. I was able to identify the RADIUS CORNER MACHINE OPERATOR shunt, appendicostomy, and urostomy. Despite this, I was unable to find and identify the transverse colon definitively to bring up a diverting loop colostomy. In addition to this, the stomach was unable to be identified due to the extensive scar tissue present and presumably, bowel and liver between the stomach and abdominal wall. Decision was made to abort placement of both the PEG tube and colostomy. The abdominal cavity was desufflated and the ports were removed. Interrupted subcuticular 4-0 Monocryl sutures and Dermabond were used to close the skin incisions. The patient tolerated both procedures well. She was awakened, extubated, and taken to recovery room in stable condition with no apparent intraoperative complications. We will need to rely on aggressive local wound care, good nutrition plus protein supplements, and offloading of the wound in order for this wound to heal. Should she have significant contamination due to the proximity of the wound to the anus with fecal soilage, we will need to strongly consider placing [address] [address] OPERATIVE REPORT Name: RENZO BUCIO ANAMARIA Room #: 364-P [facility] IN M.R.#: [id number] Admission: 03/19/18 Attend Phys: Kashif Kwok MD Discharge: Date of : 89 Report #: [id number] a PEG tube and bring out colostomy in an open fashion. The patient's family expressed understanding in my postoperative discussion with them. <ELECTRONICALLY SIGNED> By: Alberto York MD, FACS 03/27/18 0745 [id number] Alberto York MD, FACS /nt
[2018-03-27 08:24] VITALS: BP 133/59
--- NOTE | 2018-03-27 11:07 | NUR ---
Nutrition: Obtained verbal calorie count from mother from 03/26 and started daily calorie count as PEG was unable to be placed. Pt consumed 1000 kcals and 45 gm protein this day meeting 53% kcal needs. 48% low end protein needs. Pt unable to tolerate majority of supplements trialed. Now agrees to ensure max, REC 2/day if tolerates. Protein/nutrition requirements reviewed with pt/mother. RD to follow.
--- NOTE | 2018-03-27 11:46 | NUR ---
DP SENT FAX TO [facility] FAX [phone] "REEQUESTING A RECLINING WHEELCHAIR" ALSO INCLUDED FACESHEET , THERAPY NOTES, H&p AND HEIGHT AND WEIGHT, DP WILL CALL TO ENSURE DELIVERY.
[2018-03-27 12:00] VITALS: BP 130/72
--- NOTE | 2018-03-27 14:01 | NUR ---
ON-GOING ASSESSMENT: CM REVIEWED CHART AND MET WITH PATIENT AND HER MOTHER AT THE BEDSIDE. CM DISCUSSED HOW [facility] SPOKE WITH CM AND THEY ARE UNABLE TO ACCEPT [place]ICA[place] PATIENT AT THIS TIME THEY ONLY HAVE SO MANY MEDICAID BEDS AVAILABLE. MOTHER ASKED ABOUT [facility] AND [facility] [place] [facility]ICA[facility]. CM DISCUSSED THAT [facility] ACCEPTS [place] MEDICAID AND A REFERRAL COULD BE SENT TO [facility] IF INTERESTED. MOTHER AND PT WANTED REFERRAL SENT TO [facility] SO CM FAXED REFERRAL AND NOTIFIED SUSANA KEENE. [facility] CAME TO DO AN EVAL THIS AFTERNOON AND STATES THEY CAN ACCEPT PATIENT PENDING INSURANCE AUTH. PATIENT AND MOTHER REPORTED THAT THEY WANTED TO TRY GOING TO [facility], CM NOTIFIED ATTENDING WHO STATES PATIENT COULD POSSIBLE BE READY FOR DISCHARGE TOMORROW. CM NOTIFIED SUSANA KEENE AT [facility] WHO WILL SEEK INSURANCE AUTH IN THE AM. PATIENTS MOTHER ALSO DISCUSSED WANTING A RECLINING WHEELCHAIR FOR HOME. CM NOTIFIED ELECTRIC [employer]GAN INSPECTOR AND REPAIRER WHO FAXED REFERRAL TO [facility], [place] AND CM NOTIFIED YECENIA AT [facility] SO THEY CAN FOLLOW UP WHILE PATIENT IS AT [facility].
--- NOTE | 2018-03-27 14:08 | NUR ---
WOUND FOLLOW UP: PT. WAS SEEN TODAY BY DR. HOGAN AND MYSELF. PT. WOUND IS STABLE AT THIS TIME. PT. WAS IN GOOD SPIRITS TODAY. RECOMMENDATIONS: CONTINUE WITH CURRENT PLAN OF CARE. PT. AND STAFF NURSE WERE INSTRUCTED ON PLAN OF CARE.
--- NOTE | 2018-03-27 14:46 | NUR ---
PATIENT STARTED ON ISOLATION THIS AM FOR VRE IN WOUND TO COCCYX. MOTHER, DONELL EDUCATED ON NEW LABS. SHE MAY BE DISCHARGING TO [facility] TOMORROW ON IV ABT. SHE IS ALERT ORIENTED X3. HAD A BOWEL PREP THIS PM. DID COMPLAIN OF PAIN AND PRN PAIN MEDICATION ADMINISTERED. WILL CONT WITH PLAN OF CARE.
[2018-03-27 16:03] VITALS: BP 156/100
[2018-03-27 18:21] LABS: % SATURATION 37 % (20-39); IRON 54 ug/dL (50-170); TIBC 147 ug/dL (250-450)
[2018-03-27 19:14] LABS: FOLIC ACID 47.7 ng/mL (8.6-58.9)
[2018-03-27 19:55] VITALS: BP 141/86
[2018-03-28 04:00] VITALS: BP 135/84
--- NOTE | 2018-03-28 04:43 | NUR ---
Medicated for pain with some relief.She slept well in between repositioning. O2 at 3L/NC then trilogy at HS. No respiratory distress. Encouraged use of IS while awake. Cont. on isolation for VRE. Afebrile. Mom at bedside. Bed alarm on for safety. Making progress towards care plan goals.
[2018-03-28 08:09] VITALS: BP 139/81
--- NOTE | 2018-03-28 09:54 | NUR ---
ON-GOING ASSESSMENT: CM FAXED ON-GOING CLINICAL TO [facility] ON PATIENT IN ATTEMPTS TO SEEK INSURANCE AUTH FOR POSSIBLE ADMISSION TO [facility] TODAY. CM WILL CONTINUE TO FOLLOW.
[2018-03-28 11:12] VITALS: BP 134/77
--- NOTE | 2018-03-28 13:44 | NUR ---
WOUND FOLLOW UP: PT. WAS SEEN TODAY BY DR. ANDERSON AND MYSELF. PT. WOUND IS CLINICALLY BETTER TODAY THAN YESTERDAY. RECOMMENDATIONS: CONTINUE WITH CURRENT PLAN OF CARE. PT. AND STAFF NURSE WERE INSTRUCTED ON PLAN OF CARE.
[2018-03-28] MEDS ORDERED: CIPRO250 M1 PO (13:47)
[2018-03-28] MEDS ORDERED: ZOSYN 3.3753.375 GM IV (13:47)
[2018-03-28] MEDS ORDERED: IRON325 PO (13:47)
[2018-03-28] MEDS ORDERED: VITAMIN D5000 UNIT PO (13:48)
--- NOTE | 2018-03-28 14:33 | NUR ---
on-going assessment: CM REVIEWED CHART AND SPOKE WITH ATTENDING WHO STATES PATIENT IS MEDICALLY STABLE FOR DISCHARGE TO [facility] TODAY. CM NOTIFIED LIAMARQUITA KEENE AT [facility] WHO STATES THEY HAVE INSURANCE AUTH TO ACCEPT PATIENT FOR ADMISSION TODAY. [facility] DISCUSSED PATIENT IS ON LITHOSTAT AND THEIR PHARMACY CANNOT PROVIDE IT AND PATIENT WOULD HAVE TO BRING HER OWN SUPPLY, CM SPOKE WITH PATIENT AND HER MOTHER AND THEY HAVE IT AND PATIENT CAN BRING IT WITH HER TO [facility]. CHART COPY WAS ORDERED. CM FAXED DISCHARGE ORDERS TO [facility] [phone] AND CONFIRMED THEY RECEIVED IT. CM NOTIFIED BEDSIDE RN OF THE NUMBER FOR REPORT. CM ATTEMPTED TO SET UP TRANSPORTATION THROUGH [facility] DUE TO PATIENT HAVING MEDICAID BUT THEY STATE SINCE ITS CONSIDERED HOSPITAL TO HOSPITAL THEY CANNOT SET-UP TRANSPORT. CM ARRANGED TRANSPORT VIA AMBULANCE VIA [facility] AND TRANSPORTATION TIME IS 1515. [facility]([phone]). PATIENTS MOTHER AND PATIENT WERE NOTIFIED OF TRANSPORTATION TIME. CASE CLOSED.
[2018-03-28 14:50] LABS: ABSOLUTE RETIC COUNT 0.1349 10^6/uL; HEMATOCRIT 27.1 % (37.0-47.0); HEMOGLOBIN 9.2 gm/dL (12.0-15.0); MCH 30.8 pg (26.0-34.0); MCHC 33.8 g/dL (28.0-37.0); MCV 91.2 fL (80.0-100.0); OBSERVED RETIC COUNT 4.54 % (0.6-2.6); RBC 2.97 mil/uL (4.20-5.00)
[2018-03-28 14:58] LABS: ALBUMIN 2.2 g/dL (3.4-5.0); CALCIUM 8.3 mg/dL (8.5-10.1); CREATININE 0.6 mg/dL (0.6-1.0)
[2018-03-28 15:01] LABS: POTASSIUM 2.9 mmol/L (3.5-5.1)
--- NOTE | 2018-03-28 16:25 | NUR ---
[facility] CAME AND PICKED UP [facility] LITHOSTAT.
--- NOTE | 2018-03-28 16:42 | NUR ---
ASSUMED CARE AT 0700. PT A&OX4. PT ON 3LNC. PT WEARS TRILOGY 5-6L AT NIGHTTIME WITH CONTINOUS PULSE OX. PT HAS STOMA FROM [employer] THAT IS USED TO STRAIGHT CATH PT. PT'S MOM DOES ALL STRAIGHT CATHING FOR PT. PT ALSO HAS MACE PORT THAT IS USED TO IRRIGATE BOWEL. PT'S MOTHER ALSO DOES THIS PRN. PT DISCHARGED TO [facility] TODAY VIA AMBULANCE. REPORT CALLED TO [facility]. PT LEFT UNIT VIA STRETCHER AT 15:20. WOUND CARE DRESSING CHANGE DONE IN AM. LABS DRAWN PRIOR TO D/C AND PT HAD CRITICAL LOW K. HOSPITALIST CALLED AND ORDER GIVEN TO GIVE 40 MEQ PO PRIOR TO D/C. PICC LINE FLUSHED AND REMAINED IN PLACE FOR TRANSFER TO [facility].
--- NOTE | 2018-03-29 13:08 | PATH ---
[facility] [place] [address] [place] [address] PATHOLOGY RPT PROCEDURE Name: RENZO BUCIO Room #: 364-P DIS IN M.R.#: [id number] Admission: 03/19/18 Date of : 89 Discharge: 03/28/18 Report #: [id number] Path Case #: [id number] [facility] Accession Number: [id number] . 01 Material submitted: . PART A: RIGHT ISCHIAL PART B: RIGHT ISCHIAL TUBEROSITY . 01 Clinical history: . Preop DX: Sacral wound Postop DX: Same as preop, and intra abdominal adhesions . 02 Diagnosis: A. Skin and subcutaneous tissue, right ischial soft tissue, debridement. - Ulceration along with fibrinoid degeneration and marked acute inflammation extending into underlying subcutaneous tissue, consistent with wound tissue. . B. Right ischial tuberosity, debridement: - Fragments of remodeled bone associated with acute and chronic inflammation as well as granulation tissue, consistent with the provided history of wound. . (IUV:at;03/27/2018) QTA/03/27/2018 . 02 Electronically signed: . Kimberli Crabtree MD, Pathologist NPI- [id number] . 01 Gross description: . A. Received in formalin labeled "Renzo Bucio, right ischial soft tissue," is an irregular segment of granular, pale salcido-becerra skin with attached underlying yellow-brown soft tissue measuring 4.5 x 2.7 cm, and excised to a depth of 4.4 cm. Serial sectioning reveals firm, pale yellow-becerra cut surfaces. The specimen is submitted representatively in cassette A1. . B. Received in formalin labeled "Renzo Bucio, right ischial tuberosity," are multiple fragments of becerra-brown soft tissue admixed with granular, light becerra bone measuring 3.8 x 1.7 x 0.8 cm in aggregate dimensions. Sectioning through the soft tissue reveals firm, pale becerra cut surfaces. Supervisor Sterile Processing bone and soft tissue are submitted in cassette B1, following decalcification. (DAC; 03/26/2018) XDC/XDC . 02 Pathologist provided ICD-10: [address] [address] PATHOLOGY RPT PROCEDURE Name: RENZO BUCIO Room #: 364-P DIS IN M.R.#: [id number] Admission: 03/19/18 Date of : 89 Discharge: 03/28/18 Report #: [id number] Path Case #: [id number] . 02 CPT . [id number], [id number] Specimen Comment: A courtesy copy of this report has been sent to Specimen Comment: [phone], , , . Specimen Comment: Report sent to ,DR SAVAGE,DR GEORGE / DR POPE Specimen Comment: A duplicate report has been generated due to demographic updates. Performed at: [address], [place] [id number] MD Jose Alfredo Swanson MD Phone: [phone] Performed at: [address] [id number] MD Kimberli Crabtree MD Phone: [phone]
== END 2018-03-28 15:18 | DRG 515 ==
LOC: 3W 16:33
PROVIDERS: Internal Medicine; Nurse Practitioner Acute Care; ADMIT Internal Medicine
PROC: B5181ZA Fluoroscopy of Superior Vena Cava using Low Osmolar Contrast, Guidance (ICD-10-PCS; principal; 2018-03-20)
PROC: 5A09357 Assistance with Respiratory Ventilation, Less than 24 Consecutive Hours, Continuous Positive Airway Pressure (ICD-10-PCS; principal; 2018-03-20)
PROC: 02PYX3Z Removal of Infusion Device from Great Vessel, External Approach (ICD-10-PCS; principal; 2018-03-20)
PROC: 02HV33Z Insertion of Infusion Device into Superior Vena Cava, Percutaneous Approach (ICD-10-PCS; principal; 2018-03-20)
PROC: 5A09357 Assistance with Respiratory Ventilation, Less than 24 Consecutive Hours, Continuous Positive Airway Pressure (ICD-10-PCS; 2018-03-21)
PROC: 30233N1 Transfusion of Nonautologous Red Blood Cells into Peripheral Vein, Percutaneous Approach (ICD-10-PCS; 2018-03-22)
PROC: 5A09357 Assistance with Respiratory Ventilation, Less than 24 Consecutive Hours, Continuous Positive Airway Pressure (ICD-10-PCS; 2018-03-22)
PROC: 5A09357 Assistance with Respiratory Ventilation, Less than 24 Consecutive Hours, Continuous Positive Airway Pressure (ICD-10-PCS; 2018-03-23)
PROC: 0QB30ZZ Excision of Left Pelvic Bone, Open Approach (ICD-10-PCS; 2018-03-23)
PROC: 0DJ04ZZ Inspection of Upper Intestinal Tract, Percutaneous Endoscopic Approach (ICD-10-PCS; 2018-03-23)
PROC: 5A09357 Assistance with Respiratory Ventilation, Less than 24 Consecutive Hours, Continuous Positive Airway Pressure (ICD-10-PCS; 2018-03-24)
PROC: 5A09357 Assistance with Respiratory Ventilation, Less than 24 Consecutive Hours, Continuous Positive Airway Pressure (ICD-10-PCS; 2018-03-25)
PROC: 5A09357 Assistance with Respiratory Ventilation, Less than 24 Consecutive Hours, Continuous Positive Airway Pressure (ICD-10-PCS; 2018-03-26)
PROC: 5A09357 Assistance with Respiratory Ventilation, Less than 24 Consecutive Hours, Continuous Positive Airway Pressure (ICD-10-PCS; 2018-03-27)
DX: M86.8X8 Other osteomyelitis, other site (principal); L89.324 Pressure ulcer of left buttock, stage 4; E43 Unspecified severe protein-calorie malnutrition; G82.20 Paraplegia, unspecified; J96.11 Chronic respiratory failure with hypoxia; G91.9 Hydrocephalus, unspecified; N17.9 Acute kidney failure, unspecified; I10 Essential (primary) hypertension; G47.00 Insomnia, unspecified; F32.9 Major depressive disorder, single episode, unspecified; M41.9 Scoliosis, unspecified; K59.09 Other constipation; N76.6 Ulceration of vulva; N31.9 Neuromuscular dysfunction of bladder, unspecified; E87.5 Hyperkalemia; J98.4 Other disorders of lung; E66.01 Morbid (severe) obesity due to excess calories; D63.8 Anemia in other chronic diseases classified elsewhere; F41.9 Anxiety disorder, unspecified; Z68.20 Body mass index [BMI] 20.0-20.9, adult; Z88.8 Allergy status to other drugs, medicaments and biological substances; Z88.6 Allergy status to analgesic agent; Z88.1 Allergy status to other antibiotic agents; Z91.040 Latex allergy status
CPT/HCPCS: 10879; 27000; 50010; 50101; 50249; 50386; 50403; 50555; 52265; 53307; 54118; 56525; 56526; 56530; 57092; 57119; 57120; 62110; 62900; 65130; 70005

== ENCOUNTER → 2018-03-19 | Outpatient (CLI) | payer OTHER ==
[~2018-03-19] MED LIST: ALBUTEROL2.5 MG/31 INH; AMLODIPINE BESY10 MG PO; AZOR 10-20 MG1 EACH PO; BROVANA15 MCG/2 M INH; DAKIN'S473 M1 IRRIG; DESITIN57 GM TOP; IRON325 PO; KLOR-CON 1010 MEQ PO; LIORESAL 10 MG10 MG PO; LITHOSTAT250 MG PO; MELATONIN5 M1 PO; OXYBUTYNIN 5 MG5 M2 PO; PRENATAL PO; PULMICORT0.5 MG/22 INH; SENNA8.6 MG PO; SSD CREAM 1% 5050 GM TOP; VASOTEC5 MG PO; VESICARE10 M1 PO; ZOLOFT50 MG PO; ZYRTEC10 M2 PO
== END ==
LOC: HYPER 09:19
DX: L89.324 Pressure ulcer of left buttock, stage 4 (principal); L89.123 Pressure ulcer of left upper back, stage 3; S71.102D Unspecified open wound, left thigh, subsequent encounter; G82.20 Paraplegia, unspecified; G47.30 Sleep apnea, unspecified; I10 Essential (primary) hypertension; I73.00 Raynaud's syndrome without gangrene; J45.909 Unspecified asthma, uncomplicated; K21.9 Gastro-esophageal reflux disease without esophagitis; F06.4 Anxiety disorder due to known physiological condition; F32.9 Major depressive disorder, single episode, unspecified; X58.XXXD Exposure to other specified factors, subsequent encounter

== ENCOUNTER → 2018-06-06 | Outpatient (CLI) | payer OTHER ==
[~2018-06-06] MED LIST changes: +CIPRO250 M1 PO; +VITAMIN D5000 UNIT PO; +ZOSYN 3.3753.375 GM IV
== END ==
LOC: HYPER
DX: L89.121 Pressure ulcer of left upper back, stage 1 (principal); L89.893 Pressure ulcer of other site, stage 3; G82.20 Paraplegia, unspecified; G47.30 Sleep apnea, unspecified; I10 Essential (primary) hypertension; I73.00 Raynaud's syndrome without gangrene; J45.909 Unspecified asthma, uncomplicated; K21.9 Gastro-esophageal reflux disease without esophagitis; Q05.9 Spina bifida, unspecified; F06.4 Anxiety disorder due to known physiological condition; F32.9 Major depressive disorder, single episode, unspecified

== ENCOUNTER → 2018-06-20 | Outpatient (CLI) | payer OTHER | LOC: HYPER 06:37 | DX: L89.324 Pressure ulcer of left buttock, stage 4 (principal); L89.121 Pressure ulcer of left upper back, stage 1; G82.20 Paraplegia, unspecified; G47.30 Sleep apnea, unspecified; I10 Essential (primary) hypertension; I73.00 Raynaud's syndrome without gangrene; J45.909 Unspecified asthma, uncomplicated; K21.9 Gastro-esophageal reflux disease without esophagitis; F41.9 Anxiety disorder, unspecified; F06.4 Anxiety disorder due to known physiological condition; F32.9 Major depressive disorder, single episode, unspecified ==

== ENCOUNTER → 2018-07-04 | Outpatient (CLI) | payer OTHER | LOC: HYPER 06:52 | DX: L89.324 Pressure ulcer of left buttock, stage 4 (principal); L89.121 Pressure ulcer of left upper back, stage 1; G82.20 Paraplegia, unspecified; G47.30 Sleep apnea, unspecified; I10 Essential (primary) hypertension; I73.00 Raynaud's syndrome without gangrene; J45.909 Unspecified asthma, uncomplicated; K21.9 Gastro-esophageal reflux disease without esophagitis; F06.4 Anxiety disorder due to known physiological condition; F41.9 Anxiety disorder, unspecified; F32.9 Major depressive disorder, single episode, unspecified ==

== ENCOUNTER → 2018-07-18 | Outpatient (CLI) | payer OTHER | LOC: HYPER 06:41 | DX: L89.121 Pressure ulcer of left upper back, stage 1 (principal); I10 Essential (primary) hypertension; G82.20 Paraplegia, unspecified; G47.30 Sleep apnea, unspecified; J45.909 Unspecified asthma, uncomplicated; F06.4 Anxiety disorder due to known physiological condition; F41.9 Anxiety disorder, unspecified; F32.9 Major depressive disorder, single episode, unspecified ==

== ENCOUNTER → 2018-08-02 | Outpatient (CLI) | payer OTHER | LOC: HYPER 06:48 | DX: L89.224 Pressure ulcer of left hip, stage 4 (principal); L89.121 Pressure ulcer of left upper back, stage 1; I10 Essential (primary) hypertension; G82.20 Paraplegia, unspecified; G47.30 Sleep apnea, unspecified; J45.909 Unspecified asthma, uncomplicated; F06.4 Anxiety disorder due to known physiological condition; F41.9 Anxiety disorder, unspecified; F32.9 Major depressive disorder, single episode, unspecified; Z87.01 Personal history of pneumonia (recurrent) ==

== ENCOUNTER → 2018-08-15 | Outpatient (CLI) | payer OTHER | LOC: HYPER 06:49 | DX: L89.124 Pressure ulcer of left upper back, stage 4 (principal); G82.20 Paraplegia, unspecified; Q05.9 Spina bifida, unspecified; I10 Essential (primary) hypertension; D64.9 Anemia, unspecified; G47.30 Sleep apnea, unspecified; Z87.01 Personal history of pneumonia (recurrent); F06.4 Anxiety disorder due to known physiological condition; F32.9 Major depressive disorder, single episode, unspecified; F41.9 Anxiety disorder, unspecified ==

== ENCOUNTER → 2018-09-12 | Outpatient (CLI) | payer OTHER | LOC: HYPER 06:13 | DX: L89.893 Pressure ulcer of other site, stage 3 (principal); L89.121 Pressure ulcer of left upper back, stage 1; G82.20 Paraplegia, unspecified; G47.30 Sleep apnea, unspecified; I10 Essential (primary) hypertension; I73.00 Raynaud's syndrome without gangrene; J45.909 Unspecified asthma, uncomplicated; K21.9 Gastro-esophageal reflux disease without esophagitis; Q05.9 Spina bifida, unspecified; F06.4 Anxiety disorder due to known physiological condition; F32.9 Major depressive disorder, single episode, unspecified ==

== ENCOUNTER → 2018-10-17 | Outpatient (CLI) | payer OTHER | LOC: HYPER 10-03 06:54 | DX: L89.304 Pressure ulcer of unspecified buttock, stage 4 (principal); L89.121 Pressure ulcer of left upper back, stage 1; L89.893 Pressure ulcer of other site, stage 3; G82.20 Paraplegia, unspecified; G47.30 Sleep apnea, unspecified; Q05.9 Spina bifida, unspecified; I10 Essential (primary) hypertension; I73.00 Raynaud's syndrome without gangrene; J45.909 Unspecified asthma, uncomplicated; K21.9 Gastro-esophageal reflux disease without esophagitis; F32.9 Major depressive disorder, single episode, unspecified; F06.4 Anxiety disorder due to known physiological condition ==

== ENCOUNTER → 2018-11-27 | Outpatient (CLI) | payer OTHER | LOC: HYPER 08:26 | DX: L89.324 Pressure ulcer of left buttock, stage 4 (principal); L89.893 Pressure ulcer of other site, stage 3; L89.121 Pressure ulcer of left upper back, stage 1; L84 Corns and callosities; G82.20 Paraplegia, unspecified; G47.30 Sleep apnea, unspecified; I10 Essential (primary) hypertension; I73.00 Raynaud's syndrome without gangrene; J45.909 Unspecified asthma, uncomplicated; K21.9 Gastro-esophageal reflux disease without esophagitis; Q05.9 Spina bifida, unspecified; F06.4 Anxiety disorder due to known physiological condition; F32.9 Major depressive disorder, single episode, unspecified ==

== ENCOUNTER → 2018-12-31 | Outpatient (CLI) | payer OTHER | LOC: HYPER 07:19 | DX: L89.324 Pressure ulcer of left buttock, stage 4 (principal); L89.893 Pressure ulcer of other site, stage 3; L84 Corns and callosities; G82.20 Paraplegia, unspecified; G47.30 Sleep apnea, unspecified; I10 Essential (primary) hypertension; I73.00 Raynaud's syndrome without gangrene; J45.909 Unspecified asthma, uncomplicated; K21.9 Gastro-esophageal reflux disease without esophagitis; Q05.9 Spina bifida, unspecified; F06.4 Anxiety disorder due to known physiological condition; F32.9 Major depressive disorder, single episode, unspecified ==

== ENCOUNTER → 2019-01-15 | Outpatient (CLI) | payer OTHER | LOC: HYPER 07:48 | DX: L89.224 Pressure ulcer of left hip, stage 4 (principal); L89.893 Pressure ulcer of other site, stage 3; L84 Corns and callosities; G82.20 Paraplegia, unspecified; G47.30 Sleep apnea, unspecified; J45.909 Unspecified asthma, uncomplicated; I10 Essential (primary) hypertension; I73.00 Raynaud's syndrome without gangrene; Q05.9 Spina bifida, unspecified; K21.9 Gastro-esophageal reflux disease without esophagitis; F06.4 Anxiety disorder due to known physiological condition ==

== ENCOUNTER → 2019-01-30 | Outpatient (CLI) | payer OTHER | LOC: HYPER 07:42 | DX: L89.224 Pressure ulcer of left hip, stage 4 (principal); L84 Corns and callosities; I10 Essential (primary) hypertension; Q05.9 Spina bifida, unspecified; D64.9 Anemia, unspecified; G47.30 Sleep apnea, unspecified; G82.20 Paraplegia, unspecified; J45.909 Unspecified asthma, uncomplicated; F06.4 Anxiety disorder due to known physiological condition; F32.9 Major depressive disorder, single episode, unspecified ==

== ENCOUNTER → 2019-02-13 | Outpatient (CLI) | payer OTHER | LOC: HYPER 10:09 | DX: L89.224 Pressure ulcer of left hip, stage 4 (principal); L84 Corns and callosities; I10 Essential (primary) hypertension; Q05.9 Spina bifida, unspecified; J45.909 Unspecified asthma, uncomplicated; G82.20 Paraplegia, unspecified; F06.4 Anxiety disorder due to known physiological condition; F41.9 Anxiety disorder, unspecified; F32.9 Major depressive disorder, single episode, unspecified ==

== ENCOUNTER → 2019-03-13 | Outpatient (CLI) | payer OTHER | LOC: HYPER 07:59 | DX: L89.324 Pressure ulcer of left buttock, stage 4 (principal); G82.20 Paraplegia, unspecified; G47.30 Sleep apnea, unspecified; I10 Essential (primary) hypertension; I73.00 Raynaud's syndrome without gangrene; Q05.9 Spina bifida, unspecified; J45.909 Unspecified asthma, uncomplicated; K21.9 Gastro-esophageal reflux disease without esophagitis; F06.4 Anxiety disorder due to known physiological condition; F32.9 Major depressive disorder, single episode, unspecified ==

== ENCOUNTER → 2019-03-27 | Outpatient (CLI) | payer OTHER | LOC: HYPER 10:16 | DX: L89.324 Pressure ulcer of left buttock, stage 4 (principal); M46.28 Osteomyelitis of vertebra, sacral and sacrococcygeal region; G82.20 Paraplegia, unspecified; I10 Essential (primary) hypertension; G47.30 Sleep apnea, unspecified; F06.4 Anxiety disorder due to known physiological condition; F32.9 Major depressive disorder, single episode, unspecified ==

== ENCOUNTER → 2019-04-17 | Outpatient (CLI) | payer OTHER | LOC: HYPER 10:17 | DX: L89.324 Pressure ulcer of left buttock, stage 4 (principal); G82.20 Paraplegia, unspecified; M46.28 Osteomyelitis of vertebra, sacral and sacrococcygeal region; G47.30 Sleep apnea, unspecified; I10 Essential (primary) hypertension; I73.00 Raynaud's syndrome without gangrene; Q05.9 Spina bifida, unspecified; J45.909 Unspecified asthma, uncomplicated; K21.9 Gastro-esophageal reflux disease without esophagitis; F06.4 Anxiety disorder due to known physiological condition; F32.9 Major depressive disorder, single episode, unspecified ==

== ENCOUNTER → 2019-05-01 | Outpatient (CLI) | payer OTHER | LOC: HYPER 10:10 | DX: L89.324 Pressure ulcer of left buttock, stage 4 (principal); M46.28 Osteomyelitis of vertebra, sacral and sacrococcygeal region; G82.20 Paraplegia, unspecified; I10 Essential (primary) hypertension; Q05.9 Spina bifida, unspecified; G47.30 Sleep apnea, unspecified; J45.909 Unspecified asthma, uncomplicated; F06.4 Anxiety disorder due to known physiological condition; F32.9 Major depressive disorder, single episode, unspecified ==

== ENCOUNTER → 2019-05-15 | Outpatient (CLI) | payer OTHER | LOC: HYPER 10:02 | DX: L89.324 Pressure ulcer of left buttock, stage 4 (principal); G82.20 Paraplegia, unspecified; M46.28 Osteomyelitis of vertebra, sacral and sacrococcygeal region; G47.30 Sleep apnea, unspecified; I10 Essential (primary) hypertension; I73.00 Raynaud's syndrome without gangrene; J45.909 Unspecified asthma, uncomplicated; Q05.9 Spina bifida, unspecified; K21.9 Gastro-esophageal reflux disease without esophagitis; F06.4 Anxiety disorder due to known physiological condition; F32.9 Major depressive disorder, single episode, unspecified ==

== ENCOUNTER → 2019-05-29 | Outpatient (CLI) | payer OTHER | LOC: HYPER 10:09 | DX: L89.324 Pressure ulcer of left buttock, stage 4 (principal); G82.20 Paraplegia, unspecified; M46.28 Osteomyelitis of vertebra, sacral and sacrococcygeal region; G47.30 Sleep apnea, unspecified; I10 Essential (primary) hypertension; I73.00 Raynaud's syndrome without gangrene; Q05.9 Spina bifida, unspecified; J45.909 Unspecified asthma, uncomplicated; F06.4 Anxiety disorder due to known physiological condition; F32.9 Major depressive disorder, single episode, unspecified; K21.9 Gastro-esophageal reflux disease without esophagitis ==

== ENCOUNTER → 2019-06-12 | Outpatient (CLI) | payer OTHER | LOC: HYPER 10:04 | DX: L89.324 Pressure ulcer of left buttock, stage 4 (principal); M46.28 Osteomyelitis of vertebra, sacral and sacrococcygeal region; G82.20 Paraplegia, unspecified; G47.30 Sleep apnea, unspecified; I10 Essential (primary) hypertension; I73.00 Raynaud's syndrome without gangrene; Q05.9 Spina bifida, unspecified; J45.909 Unspecified asthma, uncomplicated; K21.9 Gastro-esophageal reflux disease without esophagitis; F32.9 Major depressive disorder, single episode, unspecified; F06.4 Anxiety disorder due to known physiological condition ==

== ENCOUNTER → 2019-06-26 | Outpatient (CLI) | payer OTHER | LOC: HYPER 10:18 | DX: L89.324 Pressure ulcer of left buttock, stage 4 (principal); L84 Corns and callosities; M46.28 Osteomyelitis of vertebra, sacral and sacrococcygeal region; G82.20 Paraplegia, unspecified; G47.30 Sleep apnea, unspecified; I10 Essential (primary) hypertension; I73.00 Raynaud's syndrome without gangrene; J45.909 Unspecified asthma, uncomplicated; Q05.9 Spina bifida, unspecified; K21.9 Gastro-esophageal reflux disease without esophagitis; F06.4 Anxiety disorder due to known physiological condition; F32.9 Major depressive disorder, single episode, unspecified ==

== ENCOUNTER → 2019-07-10 | Outpatient (CLI) | payer OTHER | LOC: HYPER 09:59 | DX: L89.324 Pressure ulcer of left buttock, stage 4 (principal); L84 Corns and callosities; M46.28 Osteomyelitis of vertebra, sacral and sacrococcygeal region; G82.20 Paraplegia, unspecified; G47.30 Sleep apnea, unspecified; I10 Essential (primary) hypertension; I73.00 Raynaud's syndrome without gangrene; Q05.9 Spina bifida, unspecified; J45.909 Unspecified asthma, uncomplicated; K21.9 Gastro-esophageal reflux disease without esophagitis; F06.4 Anxiety disorder due to known physiological condition; F32.9 Major depressive disorder, single episode, unspecified ==

== ENCOUNTER → 2019-07-24 | Outpatient (CLI) | payer OTHER | LOC: HYPER 10:32 | DX: L89.324 Pressure ulcer of left buttock, stage 4 (principal); L84 Corns and callosities; M46.28 Osteomyelitis of vertebra, sacral and sacrococcygeal region; G82.20 Paraplegia, unspecified; G47.30 Sleep apnea, unspecified; I10 Essential (primary) hypertension; I73.00 Raynaud's syndrome without gangrene; J45.909 Unspecified asthma, uncomplicated; K21.9 Gastro-esophageal reflux disease without esophagitis; Q05.9 Spina bifida, unspecified; F06.4 Anxiety disorder due to known physiological condition; F32.9 Major depressive disorder, single episode, unspecified ==

== ENCOUNTER → 2019-08-07 | Outpatient (CLI) | payer OTHER | LOC: HYPER 10:06 | PROVIDERS: ATTEND Emergency Medicine | DX: L89.324 Pressure ulcer of left buttock, stage 4 (principal); M46.28 Osteomyelitis of vertebra, sacral and sacrococcygeal region; L84 Corns and callosities; G82.20 Paraplegia, unspecified; G47.30 Sleep apnea, unspecified; I10 Essential (primary) hypertension; I73.00 Raynaud's syndrome without gangrene; Q05.9 Spina bifida, unspecified; J45.909 Unspecified asthma, uncomplicated; K21.9 Gastro-esophageal reflux disease without esophagitis; F06.4 Anxiety disorder due to known physiological condition; F32.9 Major depressive disorder, single episode, unspecified ==

== ENCOUNTER → 2019-08-21 | Outpatient (CLI) | payer OTHER | LOC: HYPER 07:13 | PROVIDERS: ATTEND Emergency Medicine | DX: L89.324 Pressure ulcer of left buttock, stage 4 (principal); M46.28 Osteomyelitis of vertebra, sacral and sacrococcygeal region; L84 Corns and callosities; G82.20 Paraplegia, unspecified; G47.30 Sleep apnea, unspecified; I10 Essential (primary) hypertension; I73.00 Raynaud's syndrome without gangrene; Q05.9 Spina bifida, unspecified; J45.909 Unspecified asthma, uncomplicated; K21.9 Gastro-esophageal reflux disease without esophagitis; F32.9 Major depressive disorder, single episode, unspecified; F06.4 Anxiety disorder due to known physiological condition ==

== ENCOUNTER → 2019-09-04 | Outpatient (CLI) | payer OTHER | LOC: HYPER 11:05 | PROVIDERS: ATTEND Emergency Medicine | DX: L89.324 Pressure ulcer of left buttock, stage 4 (principal); L84 Corns and callosities; M46.28 Osteomyelitis of vertebra, sacral and sacrococcygeal region; G82.20 Paraplegia, unspecified; G47.30 Sleep apnea, unspecified; I10 Essential (primary) hypertension; I73.00 Raynaud's syndrome without gangrene; Q05.9 Spina bifida, unspecified; J45.909 Unspecified asthma, uncomplicated; K21.9 Gastro-esophageal reflux disease without esophagitis; F06.4 Anxiety disorder due to known physiological condition; F32.9 Major depressive disorder, single episode, unspecified ==

== ENCOUNTER → 2019-09-18 | Outpatient (CLI) | payer OTHER | LOC: HYPER 10:27 | PROVIDERS: ATTEND Emergency Medicine | DX: L89.324 Pressure ulcer of left buttock, stage 4 (principal); M46.28 Osteomyelitis of vertebra, sacral and sacrococcygeal region; L84 Corns and callosities; G82.20 Paraplegia, unspecified; G47.30 Sleep apnea, unspecified; I10 Essential (primary) hypertension; I73.00 Raynaud's syndrome without gangrene; Q05.9 Spina bifida, unspecified; J45.909 Unspecified asthma, uncomplicated; K21.9 Gastro-esophageal reflux disease without esophagitis; F32.9 Major depressive disorder, single episode, unspecified; F06.4 Anxiety disorder due to known physiological condition ==

== ENCOUNTER → 2019-10-02 | Outpatient (CLI) | payer OTHER | LOC: HYPER 10:15 | PROVIDERS: ATTEND Emergency Medicine | DX: L89.324 Pressure ulcer of left buttock, stage 4 (principal); M46.28 Osteomyelitis of vertebra, sacral and sacrococcygeal region; L84 Corns and callosities; G82.20 Paraplegia, unspecified; G47.30 Sleep apnea, unspecified; I10 Essential (primary) hypertension; I73.00 Raynaud's syndrome without gangrene; Q05.9 Spina bifida, unspecified; J45.909 Unspecified asthma, uncomplicated; F06.4 Anxiety disorder due to known physiological condition; F32.9 Major depressive disorder, single episode, unspecified; K21.9 Gastro-esophageal reflux disease without esophagitis ==

== ENCOUNTER → 2019-10-16 | Outpatient (CLI) | payer OTHER | LOC: HYPER 10:10 | PROVIDERS: ATTEND Emergency Medicine | DX: L89.324 Pressure ulcer of left buttock, stage 4 (principal); M46.28 Osteomyelitis of vertebra, sacral and sacrococcygeal region; L84 Corns and callosities; G82.20 Paraplegia, unspecified; G47.30 Sleep apnea, unspecified; I10 Essential (primary) hypertension; I73.00 Raynaud's syndrome without gangrene; Q05.9 Spina bifida, unspecified; J45.909 Unspecified asthma, uncomplicated; K21.9 Gastro-esophageal reflux disease without esophagitis; F06.4 Anxiety disorder due to known physiological condition; F41.9 Anxiety disorder, unspecified; F32.9 Major depressive disorder, single episode, unspecified ==

== ENCOUNTER → 2019-10-30 | Outpatient (CLI) | payer OTHER | LOC: HYPER 10:16 | PROVIDERS: ATTEND Emergency Medicine | DX: L89.324 Pressure ulcer of left buttock, stage 4 (principal); M46.28 Osteomyelitis of vertebra, sacral and sacrococcygeal region; G82.20 Paraplegia, unspecified; G47.30 Sleep apnea, unspecified; I10 Essential (primary) hypertension; I73.00 Raynaud's syndrome without gangrene; Q05.9 Spina bifida, unspecified; J45.909 Unspecified asthma, uncomplicated; K21.9 Gastro-esophageal reflux disease without esophagitis; F41.9 Anxiety disorder, unspecified; F32.9 Major depressive disorder, single episode, unspecified; F06.4 Anxiety disorder due to known physiological condition ==

== ENCOUNTER → 2019-11-20 | Outpatient (CLI) | payer OTHER | LOC: HYPER 09:33 | PROVIDERS: ATTEND Emergency Medicine | DX: L89.324 Pressure ulcer of left buttock, stage 4 (principal); L84 Corns and callosities; M46.28 Osteomyelitis of vertebra, sacral and sacrococcygeal region; G82.20 Paraplegia, unspecified; G47.30 Sleep apnea, unspecified; I10 Essential (primary) hypertension; I73.00 Raynaud's syndrome without gangrene; Q05.9 Spina bifida, unspecified; J45.909 Unspecified asthma, uncomplicated; K21.9 Gastro-esophageal reflux disease without esophagitis; F06.4 Anxiety disorder due to known physiological condition; F32.9 Major depressive disorder, single episode, unspecified ==

== ENCOUNTER → 2019-12-04 | Outpatient (CLI) | payer OTHER | LOC: HYPER 10:17 | PROVIDERS: ATTEND Emergency Medicine | DX: L89.324 Pressure ulcer of left buttock, stage 4 (principal); M46.28 Osteomyelitis of vertebra, sacral and sacrococcygeal region; G82.20 Paraplegia, unspecified; F06.4 Anxiety disorder due to known physiological condition; J45.909 Unspecified asthma, uncomplicated; G47.30 Sleep apnea, unspecified; I10 Essential (primary) hypertension; I73.00 Raynaud's syndrome without gangrene; Q05.9 Spina bifida, unspecified; K21.9 Gastro-esophageal reflux disease without esophagitis; F41.9 Anxiety disorder, unspecified; F32.9 Major depressive disorder, single episode, unspecified ==

== ENCOUNTER → 2019-12-18 | Outpatient (CLI) | payer OTHER | LOC: HYPER 10:19 | PROVIDERS: ATTEND Emergency Medicine | DX: L89.324 Pressure ulcer of left buttock, stage 4 (principal); L84 Corns and callosities; M46.28 Osteomyelitis of vertebra, sacral and sacrococcygeal region; G82.20 Paraplegia, unspecified; G47.30 Sleep apnea, unspecified; Q05.9 Spina bifida, unspecified; I10 Essential (primary) hypertension; I73.00 Raynaud's syndrome without gangrene; J45.909 Unspecified asthma, uncomplicated; K21.9 Gastro-esophageal reflux disease without esophagitis; F32.9 Major depressive disorder, single episode, unspecified; F06.4 Anxiety disorder due to known physiological condition ==

== ENCOUNTER → 2020-01-01 | Outpatient (CLI) | payer OTHER | LOC: HYPER 10:18 | PROVIDERS: ATTEND Emergency Medicine | DX: L89.324 Pressure ulcer of left buttock, stage 4 (principal); L84 Corns and callosities; M46.28 Osteomyelitis of vertebra, sacral and sacrococcygeal region; E66.9 Obesity, unspecified; G82.20 Paraplegia, unspecified; G47.30 Sleep apnea, unspecified; I10 Essential (primary) hypertension; I73.00 Raynaud's syndrome without gangrene; J45.909 Unspecified asthma, uncomplicated; K21.9 Gastro-esophageal reflux disease without esophagitis; M48.00 Spinal stenosis, site unspecified; F32.9 Major depressive disorder, single episode, unspecified; F06.4 Anxiety disorder due to known physiological condition; Z68.30 Body mass index [BMI] 30.0-30.9, adult ==

== ENCOUNTER → 2020-01-15 | Outpatient (CLI) | payer OTHER | LOC: HYPER 10:10 | PROVIDERS: ATTEND Emergency Medicine | DX: L89.324 Pressure ulcer of left buttock, stage 4 (principal); M46.28 Osteomyelitis of vertebra, sacral and sacrococcygeal region; E66.9 Obesity, unspecified; G47.30 Sleep apnea, unspecified; G82.20 Paraplegia, unspecified; I10 Essential (primary) hypertension; I73.00 Raynaud's syndrome without gangrene; J45.909 Unspecified asthma, uncomplicated; Q05.9 Spina bifida, unspecified; K21.9 Gastro-esophageal reflux disease without esophagitis; F41.9 Anxiety disorder, unspecified; F32.9 Major depressive disorder, single episode, unspecified; F06.4 Anxiety disorder due to known physiological condition; Z68.30 Body mass index [BMI] 30.0-30.9, adult ==

== ENCOUNTER → 2020-01-29 | Outpatient (CLI) | payer OTHER | LOC: HYPER 10:19 | PROVIDERS: ATTEND Emergency Medicine | DX: L89.324 Pressure ulcer of left buttock, stage 4 (principal); L84 Corns and callosities; M46.28 Osteomyelitis of vertebra, sacral and sacrococcygeal region; E66.9 Obesity, unspecified; G47.30 Sleep apnea, unspecified; G82.20 Paraplegia, unspecified; I10 Essential (primary) hypertension; I73.00 Raynaud's syndrome without gangrene; J45.909 Unspecified asthma, uncomplicated; Q05.9 Spina bifida, unspecified; K21.9 Gastro-esophageal reflux disease without esophagitis; F32.9 Major depressive disorder, single episode, unspecified; F06.4 Anxiety disorder due to known physiological condition; Z68.30 Body mass index [BMI] 30.0-30.9, adult ==

== ENCOUNTER → 2020-02-10 | Outpatient (CLI) | payer OTHER | LOC: HYPER 09:02 | PROVIDERS: ATTEND Emergency Medicine Emergency Medical Services | DX: L89.324 Pressure ulcer of left buttock, stage 4 (principal); L84 Corns and callosities; M46.28 Osteomyelitis of vertebra, sacral and sacrococcygeal region; E66.9 Obesity, unspecified; G47.30 Sleep apnea, unspecified; G82.20 Paraplegia, unspecified; I10 Essential (primary) hypertension; I73.00 Raynaud's syndrome without gangrene; J45.909 Unspecified asthma, uncomplicated; Q05.9 Spina bifida, unspecified; K21.9 Gastro-esophageal reflux disease without esophagitis; F32.9 Major depressive disorder, single episode, unspecified; F06.4 Anxiety disorder due to known physiological condition; Z68.30 Body mass index [BMI] 30.0-30.9, adult ==

== ENCOUNTER → 2020-02-17 | Outpatient (CLI) | payer OTHER | LOC: HYPER 09:19 | PROVIDERS: ATTEND Emergency Medicine Emergency Medical Services | DX: L89.324 Pressure ulcer of left buttock, stage 4 (principal); M46.28 Osteomyelitis of vertebra, sacral and sacrococcygeal region; G82.20 Paraplegia, unspecified; J45.909 Unspecified asthma, uncomplicated; I10 Essential (primary) hypertension; I73.00 Raynaud's syndrome without gangrene; Q05.9 Spina bifida, unspecified; E66.9 Obesity, unspecified; G47.30 Sleep apnea, unspecified; F32.9 Major depressive disorder, single episode, unspecified; F06.4 Anxiety disorder due to known physiological condition; Z87.01 Personal history of pneumonia (recurrent); Z68.30 Body mass index [BMI] 30.0-30.9, adult ==

== ENCOUNTER → 2020-03-04 | Outpatient (CLI) | payer OTHER | LOC: HYPER 10:08 | PROVIDERS: ATTEND Emergency Medicine | DX: L89.324 Pressure ulcer of left buttock, stage 4 (principal); L84 Corns and callosities; M46.28 Osteomyelitis of vertebra, sacral and sacrococcygeal region; G82.20 Paraplegia, unspecified; G47.30 Sleep apnea, unspecified; E66.9 Obesity, unspecified; I10 Essential (primary) hypertension; I73.00 Raynaud's syndrome without gangrene; Q05.9 Spina bifida, unspecified; J45.909 Unspecified asthma, uncomplicated; K21.9 Gastro-esophageal reflux disease without esophagitis; F32.9 Major depressive disorder, single episode, unspecified; F06.4 Anxiety disorder due to known physiological condition; Z87.01 Personal history of pneumonia (recurrent); Z68.30 Body mass index [BMI] 30.0-30.9, adult ==

== ENCOUNTER → 2020-03-19 | Outpatient (CLI) | payer OTHER | LOC: HYPER 10:15 | PROVIDERS: ATTEND Emergency Medicine | DX: L89.324 Pressure ulcer of left buttock, stage 4 (principal); L84 Corns and callosities; M46.28 Osteomyelitis of vertebra, sacral and sacrococcygeal region; G82.20 Paraplegia, unspecified; G47.30 Sleep apnea, unspecified; E66.9 Obesity, unspecified; I10 Essential (primary) hypertension; I73.00 Raynaud's syndrome without gangrene; Q05.9 Spina bifida, unspecified; J45.909 Unspecified asthma, uncomplicated; K21.9 Gastro-esophageal reflux disease without esophagitis; F32.9 Major depressive disorder, single episode, unspecified; F06.4 Anxiety disorder due to known physiological condition; Z87.01 Personal history of pneumonia (recurrent); Z68.30 Body mass index [BMI] 30.0-30.9, adult ==

== ENCOUNTER → 2020-04-01 | Outpatient (CLI) | payer OTHER | LOC: HYPER 13:08 | PROVIDERS: ATTEND Emergency Medicine | DX: L89.324 Pressure ulcer of left buttock, stage 4 (principal); L84 Corns and callosities; M46.28 Osteomyelitis of vertebra, sacral and sacrococcygeal region; G82.20 Paraplegia, unspecified; G47.30 Sleep apnea, unspecified; E66.9 Obesity, unspecified; I10 Essential (primary) hypertension; I73.00 Raynaud's syndrome without gangrene; Q05.9 Spina bifida, unspecified; J45.909 Unspecified asthma, uncomplicated; K21.9 Gastro-esophageal reflux disease without esophagitis; F32.9 Major depressive disorder, single episode, unspecified; F06.4 Anxiety disorder due to known physiological condition; Z87.01 Personal history of pneumonia (recurrent); Z68.30 Body mass index [BMI] 30.0-30.9, adult ==

== ENCOUNTER → 2020-04-16 | Outpatient (CLI) | payer OTHER | LOC: HYPER 10:13 | PROVIDERS: ATTEND Emergency Medicine | DX: L89.324 Pressure ulcer of left buttock, stage 4 (principal); L84 Corns and callosities; M46.28 Osteomyelitis of vertebra, sacral and sacrococcygeal region; G82.20 Paraplegia, unspecified; G47.30 Sleep apnea, unspecified; E66.9 Obesity, unspecified; I73.00 Raynaud's syndrome without gangrene; I10 Essential (primary) hypertension; Q05.9 Spina bifida, unspecified; J45.909 Unspecified asthma, uncomplicated; K21.9 Gastro-esophageal reflux disease without esophagitis; F32.9 Major depressive disorder, single episode, unspecified; F06.4 Anxiety disorder due to known physiological condition; Z87.01 Personal history of pneumonia (recurrent); Z68.30 Body mass index [BMI] 30.0-30.9, adult ==

== ENCOUNTER → 2020-04-29 | Outpatient (CLI) | payer OTHER | LOC: HYPER 13:07 | PROVIDERS: ATTEND Emergency Medicine | DX: L89.324 Pressure ulcer of left buttock, stage 4 (principal); L84 Corns and callosities; M46.28 Osteomyelitis of vertebra, sacral and sacrococcygeal region; G82.20 Paraplegia, unspecified; G47.30 Sleep apnea, unspecified; E66.9 Obesity, unspecified; I73.00 Raynaud's syndrome without gangrene; I10 Essential (primary) hypertension; Q05.9 Spina bifida, unspecified; J45.909 Unspecified asthma, uncomplicated; K21.9 Gastro-esophageal reflux disease without esophagitis; F32.9 Major depressive disorder, single episode, unspecified; F06.4 Anxiety disorder due to known physiological condition; Z87.01 Personal history of pneumonia (recurrent); Z68.30 Body mass index [BMI] 30.0-30.9, adult ==

== ENCOUNTER → 2020-05-13 | Outpatient (CLI) | payer OTHER | LOC: HYPER 13:28 | PROVIDERS: ATTEND Emergency Medicine | DX: L89.324 Pressure ulcer of left buttock, stage 4 (principal); M46.28 Osteomyelitis of vertebra, sacral and sacrococcygeal region; G82.20 Paraplegia, unspecified; Q05.9 Spina bifida, unspecified; J45.909 Unspecified asthma, uncomplicated; G47.30 Sleep apnea, unspecified; I73.00 Raynaud's syndrome without gangrene; E66.9 Obesity, unspecified; F41.9 Anxiety disorder, unspecified; F32.9 Major depressive disorder, single episode, unspecified; Z68.30 Body mass index [BMI] 30.0-30.9, adult; Z87.01 Personal history of pneumonia (recurrent); Z79.899 Other long term (current) drug therapy ==

== ENCOUNTER → 2020-05-27 | Outpatient (CLI) | payer OTHER | LOC: HYPER 10:10 | PROVIDERS: ATTEND Emergency Medicine | DX: L89.324 Pressure ulcer of left buttock, stage 4 (principal); M46.28 Osteomyelitis of vertebra, sacral and sacrococcygeal region; G82.20 Paraplegia, unspecified; Q05.9 Spina bifida, unspecified; G47.30 Sleep apnea, unspecified; I73.00 Raynaud's syndrome without gangrene; I10 Essential (primary) hypertension; E66.9 Obesity, unspecified; J45.909 Unspecified asthma, uncomplicated; K21.9 Gastro-esophageal reflux disease without esophagitis; F06.4 Anxiety disorder due to known physiological condition; F32.9 Major depressive disorder, single episode, unspecified; Z68.30 Body mass index [BMI] 30.0-30.9, adult; Z87.01 Personal history of pneumonia (recurrent); Z79.899 Other long term (current) drug therapy ==

== ENCOUNTER → 2020-06-10 | Outpatient (CLI) | payer OTHER | LOC: HYPER 13:22 | PROVIDERS: ATTEND Emergency Medicine | DX: L89.324 Pressure ulcer of left buttock, stage 4 (principal); M46.28 Osteomyelitis of vertebra, sacral and sacrococcygeal region; G82.20 Paraplegia, unspecified; Q05.9 Spina bifida, unspecified; G47.30 Sleep apnea, unspecified; I73.00 Raynaud's syndrome without gangrene; I10 Essential (primary) hypertension; E66.9 Obesity, unspecified; J45.909 Unspecified asthma, uncomplicated; K21.9 Gastro-esophageal reflux disease without esophagitis; F06.4 Anxiety disorder due to known physiological condition; F32.9 Major depressive disorder, single episode, unspecified; Z68.30 Body mass index [BMI] 30.0-30.9, adult; Z87.01 Personal history of pneumonia (recurrent); Z79.899 Other long term (current) drug therapy ==

== ENCOUNTER → 2020-07-01 | Outpatient (CLI) | payer OTHER | LOC: HYPER 09:13 | PROVIDERS: ATTEND Emergency Medicine | DX: L89.324 Pressure ulcer of left buttock, stage 4 (principal); L84 Corns and callosities; M46.28 Osteomyelitis of vertebra, sacral and sacrococcygeal region; G82.20 Paraplegia, unspecified; Q05.9 Spina bifida, unspecified; G47.30 Sleep apnea, unspecified; I73.00 Raynaud's syndrome without gangrene; I10 Essential (primary) hypertension; E66.9 Obesity, unspecified; J45.909 Unspecified asthma, uncomplicated; K21.9 Gastro-esophageal reflux disease without esophagitis; F06.4 Anxiety disorder due to known physiological condition; F32.9 Major depressive disorder, single episode, unspecified; Z68.30 Body mass index [BMI] 30.0-30.9, adult; Z87.01 Personal history of pneumonia (recurrent); Z79.899 Other long term (current) drug therapy ==

== ENCOUNTER → 2020-07-14 | Outpatient (CLI) | payer OTHER | LOC: HYPER 07:53 | PROVIDERS: ATTEND Emergency Medicine | DX: L89.324 Pressure ulcer of left buttock, stage 4 (principal); L84 Corns and callosities; M46.28 Osteomyelitis of vertebra, sacral and sacrococcygeal region; G82.20 Paraplegia, unspecified; Q05.9 Spina bifida, unspecified; G47.30 Sleep apnea, unspecified; I73.00 Raynaud's syndrome without gangrene; I10 Essential (primary) hypertension; E66.9 Obesity, unspecified; J45.909 Unspecified asthma, uncomplicated; K21.9 Gastro-esophageal reflux disease without esophagitis; F06.4 Anxiety disorder due to known physiological condition; F32.9 Major depressive disorder, single episode, unspecified; Z68.30 Body mass index [BMI] 30.0-30.9, adult; Z87.01 Personal history of pneumonia (recurrent); Z79.899 Other long term (current) drug therapy ==

== ENCOUNTER → 2020-07-29 | Outpatient (CLI) | payer OTHER | LOC: HYPER 07:49 | PROVIDERS: ATTEND Emergency Medicine | DX: L89.324 Pressure ulcer of left buttock, stage 4 (principal); L84 Corns and callosities; M46.28 Osteomyelitis of vertebra, sacral and sacrococcygeal region; G82.20 Paraplegia, unspecified; Q05.9 Spina bifida, unspecified; G47.30 Sleep apnea, unspecified; I73.00 Raynaud's syndrome without gangrene; I10 Essential (primary) hypertension; E66.9 Obesity, unspecified; J45.909 Unspecified asthma, uncomplicated; K21.9 Gastro-esophageal reflux disease without esophagitis; F06.4 Anxiety disorder due to known physiological condition; F32.9 Major depressive disorder, single episode, unspecified; Z68.30 Body mass index [BMI] 30.0-30.9, adult; Z87.01 Personal history of pneumonia (recurrent) ==

== ENCOUNTER → 2020-08-12 | Outpatient (CLI) | payer OTHER | LOC: HYPER 08:20 | PROVIDERS: ATTEND Emergency Medicine | DX: L89.324 Pressure ulcer of left buttock, stage 4 (principal); L84 Corns and callosities; M46.28 Osteomyelitis of vertebra, sacral and sacrococcygeal region; G82.20 Paraplegia, unspecified; Q05.9 Spina bifida, unspecified; G47.30 Sleep apnea, unspecified; I73.00 Raynaud's syndrome without gangrene; I10 Essential (primary) hypertension; E66.9 Obesity, unspecified; J45.909 Unspecified asthma, uncomplicated; K21.9 Gastro-esophageal reflux disease without esophagitis; F06.4 Anxiety disorder due to known physiological condition; F32.9 Major depressive disorder, single episode, unspecified; Z68.30 Body mass index [BMI] 30.0-30.9, adult; Z87.01 Personal history of pneumonia (recurrent) ==

== ENCOUNTER → 2020-08-26 | Outpatient (CLI) | payer OTHER | LOC: HYPER 08:05 | PROVIDERS: ATTEND Emergency Medicine | DX: L89.324 Pressure ulcer of left buttock, stage 4 (principal); L84 Corns and callosities; M46.28 Osteomyelitis of vertebra, sacral and sacrococcygeal region; G82.20 Paraplegia, unspecified; Q05.9 Spina bifida, unspecified; G47.30 Sleep apnea, unspecified; I73.00 Raynaud's syndrome without gangrene; I10 Essential (primary) hypertension; E66.9 Obesity, unspecified; J45.909 Unspecified asthma, uncomplicated; K21.9 Gastro-esophageal reflux disease without esophagitis; F06.4 Anxiety disorder due to known physiological condition; F32.9 Major depressive disorder, single episode, unspecified; Z68.30 Body mass index [BMI] 30.0-30.9, adult; Z87.01 Personal history of pneumonia (recurrent) ==

== ENCOUNTER → 2020-09-09 | Outpatient (CLI) | payer OTHER | LOC: HYPER 07:49 | PROVIDERS: ATTEND Emergency Medicine | DX: L89.324 Pressure ulcer of left buttock, stage 4 (principal); L84 Corns and callosities; M46.28 Osteomyelitis of vertebra, sacral and sacrococcygeal region; G82.20 Paraplegia, unspecified; Q05.9 Spina bifida, unspecified; G47.30 Sleep apnea, unspecified; I73.00 Raynaud's syndrome without gangrene; I10 Essential (primary) hypertension; E66.9 Obesity, unspecified; J45.909 Unspecified asthma, uncomplicated; K21.9 Gastro-esophageal reflux disease without esophagitis; F06.4 Anxiety disorder due to known physiological condition; F32.9 Major depressive disorder, single episode, unspecified; Z68.30 Body mass index [BMI] 30.0-30.9, adult; Z87.01 Personal history of pneumonia (recurrent) ==

== ENCOUNTER → 2020-09-23 | Outpatient (CLI) | payer OTHER | LOC: HYPER 08:48 | PROVIDERS: ATTEND Emergency Medicine Emergency Medical Services | DX: L89.324 Pressure ulcer of left buttock, stage 4 (principal); L84 Corns and callosities; M46.28 Osteomyelitis of vertebra, sacral and sacrococcygeal region; G82.20 Paraplegia, unspecified; Q05.9 Spina bifida, unspecified; G47.30 Sleep apnea, unspecified; I73.00 Raynaud's syndrome without gangrene; I10 Essential (primary) hypertension; E66.9 Obesity, unspecified; J45.909 Unspecified asthma, uncomplicated; K21.9 Gastro-esophageal reflux disease without esophagitis; F06.4 Anxiety disorder due to known physiological condition; F32.9 Major depressive disorder, single episode, unspecified; Z68.30 Body mass index [BMI] 30.0-30.9, adult; Z87.01 Personal history of pneumonia (recurrent) ==

== ENCOUNTER → 2020-10-07 | Outpatient (CLI) | payer OTHER | LOC: HYPER 08:59 | PROVIDERS: ATTEND Emergency Medicine | DX: L89.324 Pressure ulcer of left buttock, stage 4 (principal); L84 Corns and callosities; M46.28 Osteomyelitis of vertebra, sacral and sacrococcygeal region; G82.20 Paraplegia, unspecified; Q05.9 Spina bifida, unspecified; G47.30 Sleep apnea, unspecified; I73.00 Raynaud's syndrome without gangrene; I10 Essential (primary) hypertension; E66.9 Obesity, unspecified; J45.909 Unspecified asthma, uncomplicated; K21.9 Gastro-esophageal reflux disease without esophagitis; F06.4 Anxiety disorder due to known physiological condition; F32.9 Major depressive disorder, single episode, unspecified; Z68.30 Body mass index [BMI] 30.0-30.9, adult; Z87.01 Personal history of pneumonia (recurrent) ==

== ENCOUNTER → 2020-10-21 | Outpatient (CLI) | payer OTHER | LOC: MRI 08:37 | PROVIDERS: ATTEND Emergency Medicine | DX: L89.324 Pressure ulcer of left buttock, stage 4 (principal); G82.20 Paraplegia, unspecified; Z98.890 Other specified postprocedural states ==

== ENCOUNTER → 2020-10-21 | Outpatient (CLI) | payer OTHER | LOC: HYPER 08:09 | PROVIDERS: ATTEND Emergency Medicine | DX: L89.324 Pressure ulcer of left buttock, stage 4 (principal); L84 Corns and callosities; M46.28 Osteomyelitis of vertebra, sacral and sacrococcygeal region; Q05.9 Spina bifida, unspecified; G47.30 Sleep apnea, unspecified; I73.00 Raynaud's syndrome without gangrene; I10 Essential (primary) hypertension; E66.9 Obesity, unspecified; J45.909 Unspecified asthma, uncomplicated; K21.9 Gastro-esophageal reflux disease without esophagitis; F06.4 Anxiety disorder due to known physiological condition; F32.9 Major depressive disorder, single episode, unspecified; Z68.30 Body mass index [BMI] 30.0-30.9, adult; Z87.01 Personal history of pneumonia (recurrent) ==

== ENCOUNTER → 2020-11-04 | Outpatient (CLI) | payer OTHER | LOC: HYPER 07:53 | PROVIDERS: ATTEND Emergency Medicine | DX: L89.324 Pressure ulcer of left buttock, stage 4 (principal); L84 Corns and callosities; M46.28 Osteomyelitis of vertebra, sacral and sacrococcygeal region; Q05.9 Spina bifida, unspecified; G47.30 Sleep apnea, unspecified; G82.20 Paraplegia, unspecified; I73.00 Raynaud's syndrome without gangrene; I10 Essential (primary) hypertension; E66.9 Obesity, unspecified; J45.909 Unspecified asthma, uncomplicated; K21.9 Gastro-esophageal reflux disease without esophagitis; F06.4 Anxiety disorder due to known physiological condition; F32.9 Major depressive disorder, single episode, unspecified; Z68.30 Body mass index [BMI] 30.0-30.9, adult; Z87.01 Personal history of pneumonia (recurrent) ==

== ENCOUNTER → 2020-11-18 | Outpatient (CLI) | payer OTHER | LOC: HYPER 08:03 | PROVIDERS: ATTEND Emergency Medicine | DX: L89.324 Pressure ulcer of left buttock, stage 4 (principal); L84 Corns and callosities; M46.28 Osteomyelitis of vertebra, sacral and sacrococcygeal region; Q05.9 Spina bifida, unspecified; G47.30 Sleep apnea, unspecified; G82.20 Paraplegia, unspecified; I73.00 Raynaud's syndrome without gangrene; I10 Essential (primary) hypertension; E66.9 Obesity, unspecified; J45.909 Unspecified asthma, uncomplicated; K21.9 Gastro-esophageal reflux disease without esophagitis; F06.4 Anxiety disorder due to known physiological condition; F32.9 Major depressive disorder, single episode, unspecified; Z68.30 Body mass index [BMI] 30.0-30.9, adult; Z87.01 Personal history of pneumonia (recurrent) ==

== ENCOUNTER → 2020-12-16 | Outpatient (CLI) | payer OTHER | LOC: HYPER 09:17 | PROVIDERS: ATTEND Emergency Medicine | DX: L89.324 Pressure ulcer of left buttock, stage 4 (principal); L84 Corns and callosities; M46.28 Osteomyelitis of vertebra, sacral and sacrococcygeal region; Q05.9 Spina bifida, unspecified; G47.30 Sleep apnea, unspecified; G82.20 Paraplegia, unspecified; I73.00 Raynaud's syndrome without gangrene; I10 Essential (primary) hypertension; E66.9 Obesity, unspecified; J45.909 Unspecified asthma, uncomplicated; K21.9 Gastro-esophageal reflux disease without esophagitis; F06.4 Anxiety disorder due to known physiological condition; F32.9 Major depressive disorder, single episode, unspecified; Z68.30 Body mass index [BMI] 30.0-30.9, adult; Z87.01 Personal history of pneumonia (recurrent) ==

== ENCOUNTER → 2020-12-30 | Outpatient (CLI) | payer OTHER | LOC: HYPER 08:53 | PROVIDERS: ATTEND Emergency Medicine | DX: L89.324 Pressure ulcer of left buttock, stage 4 (principal); L84 Corns and callosities; M46.28 Osteomyelitis of vertebra, sacral and sacrococcygeal region; Q05.9 Spina bifida, unspecified; G47.30 Sleep apnea, unspecified; G82.20 Paraplegia, unspecified; I73.00 Raynaud's syndrome without gangrene; I10 Essential (primary) hypertension; E66.9 Obesity, unspecified; J45.909 Unspecified asthma, uncomplicated; K21.9 Gastro-esophageal reflux disease without esophagitis; F06.4 Anxiety disorder due to known physiological condition; F32.9 Major depressive disorder, single episode, unspecified; Z68.30 Body mass index [BMI] 30.0-30.9, adult; Z87.01 Personal history of pneumonia (recurrent) ==

== ENCOUNTER → 2021-01-13 | Outpatient (CLI) | payer OTHER | LOC: HYPER 10:04 | PROVIDERS: ATTEND Emergency Medicine | DX: L89.324 Pressure ulcer of left buttock, stage 4 (principal); L84 Corns and callosities; M46.28 Osteomyelitis of vertebra, sacral and sacrococcygeal region; Q05.9 Spina bifida, unspecified; G47.30 Sleep apnea, unspecified; G82.20 Paraplegia, unspecified; I73.00 Raynaud's syndrome without gangrene; I10 Essential (primary) hypertension; E66.9 Obesity, unspecified; J45.909 Unspecified asthma, uncomplicated; K21.9 Gastro-esophageal reflux disease without esophagitis; F06.4 Anxiety disorder due to known physiological condition; F32.9 Major depressive disorder, single episode, unspecified; Z68.30 Body mass index [BMI] 30.0-30.9, adult; Z87.01 Personal history of pneumonia (recurrent) ==

== ENCOUNTER → 2021-02-03 | Outpatient (CLI) | payer OTHER | LOC: HYPER 10:22 | PROVIDERS: ATTEND Emergency Medicine | DX: L89.324 Pressure ulcer of left buttock, stage 4 (principal); L84 Corns and callosities; M46.28 Osteomyelitis of vertebra, sacral and sacrococcygeal region; Q05.9 Spina bifida, unspecified; G47.30 Sleep apnea, unspecified; G82.20 Paraplegia, unspecified; I73.00 Raynaud's syndrome without gangrene; I10 Essential (primary) hypertension; E66.9 Obesity, unspecified; J45.909 Unspecified asthma, uncomplicated; K21.9 Gastro-esophageal reflux disease without esophagitis; F06.4 Anxiety disorder due to known physiological condition; F32.9 Major depressive disorder, single episode, unspecified; Z68.30 Body mass index [BMI] 30.0-30.9, adult; Z87.01 Personal history of pneumonia (recurrent) ==

== ENCOUNTER → 2021-02-24 | Outpatient (CLI) | payer OTHER | LOC: HYPER 08:20 | PROVIDERS: ATTEND Emergency Medicine | DX: L89.324 Pressure ulcer of left buttock, stage 4 (principal); L84 Corns and callosities; M46.28 Osteomyelitis of vertebra, sacral and sacrococcygeal region; Q05.9 Spina bifida, unspecified; G47.30 Sleep apnea, unspecified; G82.20 Paraplegia, unspecified; I73.00 Raynaud's syndrome without gangrene; I10 Essential (primary) hypertension; E66.9 Obesity, unspecified; J45.909 Unspecified asthma, uncomplicated; K21.9 Gastro-esophageal reflux disease without esophagitis; F06.4 Anxiety disorder due to known physiological condition; F32.9 Major depressive disorder, single episode, unspecified; Z68.30 Body mass index [BMI] 30.0-30.9, adult; Z87.01 Personal history of pneumonia (recurrent) ==

== ENCOUNTER → 2021-03-17 | Outpatient (CLI) | payer OTHER | LOC: HYPER 09:48 | PROVIDERS: ATTEND Emergency Medicine | DX: L89.324 Pressure ulcer of left buttock, stage 4 (principal); L84 Corns and callosities; M46.28 Osteomyelitis of vertebra, sacral and sacrococcygeal region; Q05.9 Spina bifida, unspecified; G47.30 Sleep apnea, unspecified; G82.20 Paraplegia, unspecified; I73.00 Raynaud's syndrome without gangrene; I10 Essential (primary) hypertension; E66.9 Obesity, unspecified; J45.909 Unspecified asthma, uncomplicated; K21.9 Gastro-esophageal reflux disease without esophagitis; F06.4 Anxiety disorder due to known physiological condition; F32.9 Major depressive disorder, single episode, unspecified; Z68.30 Body mass index [BMI] 30.0-30.9, adult; Z87.01 Personal history of pneumonia (recurrent) ==

== ENCOUNTER → 2021-04-05 | Outpatient (CLI) | payer OTHER | LOC: HYPER 09:56 | PROVIDERS: ATTEND Emergency Medicine Emergency Medical Services | DX: L89.324 Pressure ulcer of left buttock, stage 4 (principal); L84 Corns and callosities; M46.28 Osteomyelitis of vertebra, sacral and sacrococcygeal region; Q05.9 Spina bifida, unspecified; G47.30 Sleep apnea, unspecified; G82.20 Paraplegia, unspecified; I73.00 Raynaud's syndrome without gangrene; I10 Essential (primary) hypertension; E66.9 Obesity, unspecified; J45.909 Unspecified asthma, uncomplicated; K21.9 Gastro-esophageal reflux disease without esophagitis; F06.4 Anxiety disorder due to known physiological condition; F32.9 Major depressive disorder, single episode, unspecified; Z68.30 Body mass index [BMI] 30.0-30.9, adult; Z87.01 Personal history of pneumonia (recurrent) ==

== ENCOUNTER → 2021-04-21 | Outpatient (CLI) | payer OTHER | LOC: HYPER 09:02 | PROVIDERS: ATTEND Emergency Medicine | DX: L89.324 Pressure ulcer of left buttock, stage 4 (principal); M46.28 Osteomyelitis of vertebra, sacral and sacrococcygeal region; G82.20 Paraplegia, unspecified; J45.909 Unspecified asthma, uncomplicated; G47.30 Sleep apnea, unspecified; I10 Essential (primary) hypertension; I73.00 Raynaud's syndrome without gangrene; Q05.9 Spina bifida, unspecified; E66.9 Obesity, unspecified; F06.4 Anxiety disorder due to known physiological condition; F32.9 Major depressive disorder, single episode, unspecified; Z68.30 Body mass index [BMI] 30.0-30.9, adult; Z87.01 Personal history of pneumonia (recurrent); Z79.899 Other long term (current) drug therapy ==